=== PATIENT | male | born 1975 ===

== ENCOUNTER 2020-07-27 10:20 | Outpatient (REF) | payer OTHER, SELFPAY ==
[2020-07-27 11:24] LABS: MANUAL DIFF FLAG NO
[2020-07-27 11:32] LABS: Basophils Percent Auto 0.5 % (0-2); Eosinophils Absolute Auto 0.1 X10*3/uL (0.0-0.4); Eosinophils Percent Auto 1.7 % (0-4); Hematocrit 47.4 % (42-52); Hemoglobin 15.4 g/dl (14.0-18.0); Imm Gran Abs Auto 0.02 X10*3/uL (0.00-0.03); Imm Gran Pct Auto 0.5 % (0.0-0.4); Lymphocytes Absolute Auto 1.8 X10*3/uL (1.2-4.9); Lymphocytes Percent Auto 44.5 % (20-40); Mean Corpuscular HGB Conc 32.5 g/dl (31.0-36.0); Mean Corpuscular Hemoglobin 28.8 pg (27.0-33.0); Mean Corpuscular Volume 88.8 fL (80-98); Mean Platelet Volume 11.8 fL (9.4-12.4); Monocytes Absolute Auto 0.5 X10*3/uL (0.1-1.2); Monocytes Percent Auto 12.4 % (2-11); Neutrophils Absolute Auto 1.6 X10*3/uL (2.0-8.3); Neutrophils Percent Auto 40.4 % (45-73); Platelet Count 197 X10*3/uL (160-400); Red Blood Count 5.34 X10*6/uL (4.60-5.80); Red Cell Distribution Width 12.6 % (11.0-16.0)
[2020-07-27 11:54] LABS: Alanine Aminotransferase 37 U/L (0-40); Albumin Level 4.6 g/dL (3.5-5.0); Alkaline Phosphatase 89 U/L (39-117); Anion Gap 13 (12-20); Aspartate Amino Transferase 25 U/L (5-37); Blood Urea Nitrogen 16 mg/dL (9-16); Calcium 8.9 mg/dL (8.4-10.2); Carbon Dioxide 29 mmol/L (22-29); Chloride 105 mmol/L (96-108); Cholesterol 233 mg/dL; Estimated Glomerular Filt Rate > 60; Glucose Fasting 103 mg/dL (60-99); HDL Cholesterol 36 mg/dL; LDL Cholesterol Calculated 178 mg/dl; Sodium 143 mmol/L (135-145); Total Protein 7.2 g/dL (6.5-8.0); Triglycerides 99 mg/dL
== END 2020-07-27 10:21 | disposition home or self-care (01) ==
LOC: HO.HMGCLDS 10:20
PROVIDERS: PCP Internal Medicine; Visit Provider Internal Medicine
DX: R10.11 Right upper quadrant pain (principal); E66.3 Overweight; R00.2 Palpitations
CPT/HCPCS: 36415; 80053; 80061; 85025

== ENCOUNTER 2020-08-10 08:04 | Outpatient (REF) | payer OTHER, SELFPAY ==
--- NOTE | 2020-08-10 08:11 | US_ITS ---
EXAMINATION: US ABDOMEN COMPLETE CLINICAL INFORMATION: Right upper quadrant pain. Evaluate for gallstones.. COMPARISON: None TECHNIQUE: Real-time imaging of the abdominal viscera. FINDINGS: PANCREAS: Normal. ABDOMINAL AORTA: The proximal, mid, and distal segments are normal in caliber. INFERIOR VENA CAVA: Visualized portions are normal. LIVER: The liver is normal in size. The liver contour is normal. Liver echotexture is slightly increased. No focal hepatic lesion. There is no intrahepatic biliary duct dilatation seen. GALLBLADDER: Normal. The gallbladder is physiologically distended without evidence of stones, sludge, polyps, wall thickening or pericholecystic fluid. COMMON BILE DUCT: Normal in caliber measuring 0.3 cm in diameter. RIGHT KIDNEY: Normal. No hydronephrosis. No renal calculi or focal parenchymal lesions. The kidney measures 10.8 cm in maximum dimension. LEFT KIDNEY: Normal. No hydronephrosis. No renal calculi or focal parenchymal lesions. The kidney measures 11.6 cm in maximum dimension. SPLEEN: There is a 1.4 x 1.4 x 1.7 cm splenule inferior to the spleen The spleen measures 11 cm in maximum dimension. FREE FLUID: None. US/US abdomen complete IMPRESSION: Slightly echogenic liver. Otherwise unremarkable exam. No gallstone seen.
== END 2020-08-10 08:05 | disposition home or self-care (01) ==
LOC: HO.HMGCX 08:04
PROVIDERS: Visit Provider Internal Medicine
DX: R10.11 Right upper quadrant pain (principal)
CPT/HCPCS: 76700

== ENCOUNTER 2023-06-20 07:46 | Outpatient (AMB) | payer OTHER, SELFPAY ==
--- NOTE | 2023-06-20 08:04 | MHC.PC.OV ---
Vital Signs 06/20/23 08:09 Height 5 ft 7 in Weight 184 lb BMI 28.8 BP 118/74 Blood Pressure Location Rt brachial Position Sitting Pulse 72 Pulse Source Pulse Oximeter Pulse Oximetry (%) 99 Oxygen Delivery Method Room Air Intake Visit Reasons: Annual PE Intake Note: Pt is here today for his PE: Pt refused flu vaccine Allergies No Known Allergies [No Known Allergies*] Allergy (Verified 06/20/23 08:25) Medication List - Last Reconciled 06/20/23 by Kristine Navarrete MD aspirin (Adult Aspirin Regimen) 81 mg PO DAILY omeprazole 20 mg PO DAILY Tobacco use date assessed: 06/20/23 Dental Screening Dental Screen Date: 06/20/23 Did you have a dental visit in the last 12 months?: No Was dental information given to patient?: Patient has dentist HPI Annual PE HPI Details 48-year-old male with remote history of atrial fibrillation, history of left bundle branch block, here today for his physical exam. Complains of intermittent episodes of palpitation and muscle spasm over left anterior chest wall. Seen at the ER in [facility] February 2023 complaining of intermittent palpitations, EKG done there showed presence of left bundle branch block, old per ER note. It was also mentioned that he had history of atrial fibrillation in the past, no documentation in chart, never been anticoagulated. ACS ruled out at that time and patient was discharged on metoprolol which he stop taking, as it was making him feel strange, He has been experiencing intermittent episodes of heartburn symptoms, takes an omeprazole [id number] as needed. Complains of disturbed sleep, frequently wakes up at night to 3 times, has been told that he snores a lot and wakes up not feeling rested. Complains of excessive daytime sleepiness. He states that he has an appy in his phone that states that he has sleep apnea . [facility] Medical History (Updated 06/20/23 @ 09:08 by Kristine Navarrete MD) Vaccination refused by patient Heartburn symptom Left bundle branch block (LBBB) determined by electrocardiography History of atrial fibrillation Overweight Intermittent palpitations Family History Father No problems noted. Brother History of irregular heartbeat Sister History of irregular heartbeat Mother Mental health disorder Social History Housing: Apartment Alcohol intake: never Patient Tobacco Use Status: Never used Tobacco e-Cigarette/Vaping Use: Never Used Current occupational status: employed Cognitive needs: No Hearing needs: No Vision needs: No Questionnaire PHQ-9 Over the last 2 weeks, how often have you been bothered by any of the following problems? 1. Little interest or pleasure in doing things: several days 2. Feeling down, depressed, or hopeless: not at all 3. Trouble falling or staying asleep, or sleeping too much: not at all 4. Feeling tired or having little energy: not at all 5. Poor appetite or overeating: not at all 6. Feeling bad about yourself - or that you are a failure or have let yourself or your family down: several days 7. Trouble concentrating on things, such as reading the newspaper or watching television: several days 8. Moving or speaking so slowly that other people could have noticed. Or the opposite - being so fidgety or restless that you have been moving around a lot more than usual: not at all 9. Thoughts that you would be better off or of hurting yourself in some way: not at all Total score: 3 Depression Screening Interpretation: Negative Depression Screening Done: Yes 06682 - PHQ-9 Billing: Yes Source: Developed by Drs. Didier Prince, Val Wall, Richi Claire and colleagues, with an educational kevyn from [employer]. Thrive Questionnaire Date Thrive assessed: 06/20/23 I am a: Patient What is your living situation today?: I have a steady place to live Within the past 12 months, did the food you bought not last and you didn't have the money to get more?: Never true Within the past 12 months, did you worry whether your food would run out before you got money to buy more?: Never true Do you have trouble paying for medicines?: No Do you have trouble getting transportation to medical appointments?: No Do you have trouble paying your heating and electricity bill?: No Do you have trouble taking care of your child, family member or friend?: No Do you have trouble with day-to-day activities such as bathing, preparing meals, shopping, managing finances, etc.?: No Are you currently unemployed and looking for a job?: No Are you interested in more education?: No AUDIT C Alcohol Use Questionnaire (AUDIT-C) 1. How often do you have a drink containing alcohol?: Never Total Score: 0 EUGENIO-7 AMB Questionnaire EUGENIO-7 Date EUGENIO - 7 assessed: 06/20/23 Feeling nervous, anxious, or on edge: 0 = Not at all Not being able to stop or control worryin = Not at all Worrying too much about different things: 1 = Several days Trouble relaxin = Not at all Being so restless that it is hard to sit still: 0 = Not at all Becoming easily annoyed or irritable: 0 = Not at all Feeling afraid as if something awful might happen: 0 = Not at all Total EUGENIO-7 score (0-4 normal; 5-9 mild; 10-14 moderate; 15-21 severe): 1 Source: Developed by Drs. Didier Prince, Val Wall, Richi Claire and colleagues, with an educational kevyn from [employer]. EUGENIO-7 Assessment Billing EUGENIO-7 Assessment Tool: EUGENIO-7 Assessment 85959 Review of Systems Const Reports as per HPI, Denies fatigue, Denies fever(s), Denies headache(s), Denies poor appetite, Denies stops breathing during sleep and Denies weakness Eyes Details: Patient has not seen an eye doctor, will check with insurance to see who is under his network Reports blurry vision ENT Denies dysphagia, Denies dizziness, Denies headache(s), Denies nasal congestion, Denies nasal discharge and Denies sore throat Card Reports as per HPI, Denies chest pain, Denies chest pain with activity, Denies leg edema, Denies lightheadedness, Denies dyspnea and Denies dyspnea on exertion Resp Denies chest congestion, Denies cough, Denies dyspnea, Denies dyspnea on exertion and Denies wheezing GI Denies melena, Denies bloating, Denies change in bowel habits, Denies tenesmus, Denies change in stool character, Denies dysphagia, Denies excessive flatus, Denies heartburn, Denies nausea and Denies vomiting Denies dysuria, Denies urinary frequency and Denies urinary urgency Musc Denies arthralgias, Denies joint swelling, Denies limited range of motion, Denies muscle cramps, Denies muscle weakness and Denies stiffness Skin/Breast Denies lesions, Denies rash, Denies unusual bruising and Denies jaundice Neuro Denies dizziness, Denies headache(s) and Denies weakness Psych Reports no additional complaints Endo Denies fatigue, Denies polydipsia and Denies polyuria Donald/Lymph Denies easy bruising Aller/Immun Denies seasonal rhinorrhea and Denies wheezing Physical exam (Primary Care) Vital Signs: Last Vital Signs Pulse 72 06/20/23 08:09 BP 118/74 06/20/23 08:09 Pulse Ox 99 06/20/23 08:09 Oxygen Delivery Method Room Air 06/20/23 08:09 BMI result Body Mass Index 28.8 Tobacco/Smoking Status: Tobacco use Status Tobacco use date assessed 06/20/23 06/20/23 08:06 Patient Tobacco Use Status Never used Tobacco 06/20/23 08:13 e-Cigarette/Vaping Use Never Used 06/20/23 08:06 PHQ-9: PHQ-9 Score PHQ-9: Total score 3 06/20/23 08:58 Depression Screening Interpretation: Negative Thrive Assessment: Date of Thrive Assessment Date Thrive assessed 06/20/23 06/20/23 08:23 Const General: no acute distress and alert Nutritional Appearance: overweight Orientation/consciousness: patient oriented x3 Limitations: no limitations HENMT Head: Yes normocephalic and Yes atraumatic Ears: external ears normal, TM's normal bilaterally and EAC's normal General nose exam: Normal external nose present and No nasal discharge present Face and sinus: Yes face symmetric Mouth: Normal oral and palatal mucosa present, lip normal, tongue normal, oropharynx normal and moist mucous membranes Eyes General: appearance normal, both eyes and all related structures Eyelids: Yes eyelids normal Conjunctivae: conjunctivae normal Sclerae: sclerae normal Pupils: Equal, round and reactive pupils present EOM: EOMs intact bilaterally Neck Neck: Yes full ROM, Yes no lymphadenopathy and Yes supple Thyroid: Thyroid normal Chest Chest palpation & inspection: normal inspection of the chest Resp Effort & Inspection: normal respiratory effort and able to speak in complete sentences Auscultation: clear to auscultation bilaterally Cardio Rate: regular rate Rhythm: regular rhythm Heart sounds: S1 normal heart sound present and S2 normal heart sound present GI Palpation (GI): Soft to palpation, nontender, no guarding and no masses Auscultation: normal bowel sounds Male General Exam: Yes other (declined exam) Back/Spine/Pelvis Back: No back tenderness Skin General skin exam: no rashes or lesions noted Neuro General: patient oriented x3, gait normal, moves all extremities, Normal light touch and pain sensation, no focal motor deficits and CN's II-XI intact bilaterally Cranial nerves: Yes Equal, round and reactive pupils present Cognition (Neuro): normal cognition Gait exam (Neuro): Normal gait present Motor exam (neuro): 5/5 motor strength present throughout Extrem General: Yes normal to inspection, Yes full ROM, Yes no joint enlargement, Yes no pedal edema and Yes normal gait Psych Appearance: grossly normal and well kempt Mental Status: mental status grossly normal Speech and movement: Normal speech and movement present Affect: normal affect Attitude: cooperative Thought process: Normal thought process present Thought content: Normal thought content present Assessment and Plan Assessment & Plan (1) Annual visit for general adult medical examination with abnormal findings: Code(s): Z00.01 - Encounter for general adult medical examination with abnormal findings Plan: Will check appropriate labs. Recommended dental visit every 6 months and regular eye exams, at least every 2 years, patient will call insurance to see which eye doctor is in network.. Instructed to do self-testicular exam to check for any mass. Declines getting any vaccination. Does not want to get a screening colonoscopy but willing to do Cologuard. Patient advised to check with insurance if pain cold Cologuard covered and let me know so that test can be ordered (2) Left bundle branch block (LBBB) determined by electrocardiography: Code(s): I44.7 - Left bundle-branch block, unspecified Plan: EKG done today showed presence of left bundle branch block, old, seen on EKG done at the ER in [facility] when he was last seen February 2023. Patient complains of occasional palpitations and skipped beats. Referred to cardiology further evaluation (3) Disturbance, sleep: Code(s): G47.9 - Sleep disorder, unspecified Plan: Referred to [facility] sleep medicine for further evaluation management (4) Overweight: Code(s): E66.3 - Overweight (5) Intermittent palpitations: Code(s): R00.2 - Palpitations Plan: EKG done today showed presence of left bundle branch block, old, seen on EKG done at the ER in [facility] when he was last seen February 2023. Patient complains of occasional palpitations and skipped beats. Referred to cardiology further evaluation (6) Excessive daytime sleepiness: Code(s): G47.19 - Other hypersomnia Plan: Referral made to sleep medicine at [place] (7) Snoring: Code(s): R06.83 - Snoring Plan: Referred to sleep medicine at [place] (8) History of atrial fibrillation: Code(s): Z86.79 - Personal history of other diseases of the circulatory system Plan: EKG done today showed presence of left bundle branch block, old, seen on EKG done at the ER in [facility] when he was last seen February 2023. Patient complains of occasional palpitations and skipped beats. Referred to cardiology further evaluation (9) Vaccination refused by patient: Code(s): Z28.21 - Immunization not carried out because of patient refusal (10) Heartburn symptom: Code(s): R12 - Heartburn Plan: Takes omeprazole as needed Orders: Orders Complete Blood Count Auto Diff Today E66.3 - Overweight, R00.2 - Palpitations, Z00.01 - Encounter for general adult medical examination with abnormal findings Lipid Panel Today E66.3 - Overweight, R00.2 - Palpitations, Z00.01 - Encounter for general adult medical examination with abnormal findings AMB EKG-In Office Today R00.2 - Palpitations, Z86.79 - Personal history of other diseases of the circulatory system Basic Metabolic Panel Fasting Today E66.3 - Overweight, R00.2 - Palpitations, Z00.01 - Encounter for general adult medical examination with abnormal findings TSH reflex Free T4 Today E66.3 - Overweight, R00.2 - Palpitations, Z00.01 - Encounter for general adult medical examination with abnormal findings Referrals Sleep Medicine Referral G47.19 - Other hypersomnia, G47.9 - Sleep disorder, unspecified, R06.83 - Snoring Cardiology Referral I44.7 - Left bundle-branch block, unspecified, R00.2 - Palpitations, Z86.79 - Personal history of other diseases of the circulatory system Coding Level of Care Code Est Pt Prev Care 40-64y([id number]) Diagnoses Annual visit for general adult medical examination with abnormal findings Z00.01 Left bundle branch block (LBBB) determined by electrocardiography I44.7 Disturbance, sleep G47.9 Overweight E66.3 Intermittent palpitations R00.2 Excessive daytime sleepiness G47.19 Snoring R06.83 History of atrial fibrillation Z86.79 Vaccination refused by patient Z28.21 Heartburn symptom R12 Additional Codes EUGENIO-7 Assessment Billing - EUGENIO-7 Assessment Tool: EUGENIO-7 Assessment [id number] ([id number])
[2023-06-20 08:09] VITALS: BP 118/74; PULSE 72; O2SAT 99; BMI 28.8
== END 2023-06-20 09:08 | disposition home or self-care (01) ==
PROVIDERS: PCP Internal Medicine; Visit Provider Internal Medicine
DX: Z00.01 Encounter for general adult medical examination with abnormal findings (principal); I44.7 Left bundle-branch block, unspecified; G47.9 Sleep disorder, unspecified; E66.3 Overweight; R00.2 Palpitations; G47.19 Other hypersomnia; R06.83 Snoring; Z86.79 Personal history of other diseases of the circulatory system; Z28.21 Immunization not carried out because of patient refusal; R12 Heartburn
CPT/HCPCS: 99396

== ENCOUNTER 2023-06-20 08:53 | Outpatient (REF) | payer OTHER, SELFPAY ==
[2023-06-20 11:21] LABS: MANUAL DIFF FLAG NO
[2023-06-20 11:34] LABS: Basophils Percent Auto 0.7 % (0-2); Eosinophils Absolute Auto 0.1 X10*3/uL (0.0-0.4); Eosinophils Percent Auto 2.7 % (0-4); Hemoglobin 14.7 g/dl (14.0-18.0); Imm Gran Abs Auto 0.01 X10*3/uL (0.00-0.03); Imm Gran Pct Auto 0.2 % (0.0-0.4); Lymphocytes Absolute Auto 2.3 X10*3/uL (1.2-4.9); Lymphocytes Percent Auto 51.6 % (20-40); Mean Corpuscular Hemoglobin 28.8 pg (27.0-33.0); Mean Corpuscular Volume 90.2 fL (80.0-98.0); Monocytes Absolute Auto 0.5 X10*3/uL (0.1-1.2); Monocytes Percent Auto 11.1 % (2-11); Neutrophils Absolute Auto 1.5 x10*3/uL (2.0-8.3); Neutrophils Percent Auto 33.7 % (45-73); Platelet Count 180 X10*3/uL (160-400); Red Cell Distribution Width 12.6 % (11.0-16.0); White Blood Count 4.4 X10*3/uL (4.8-10.8)
[2023-06-20 11:52] LABS: Anion Gap 12 (12-20); Blood Urea Nitrogen 12 mg/dL (9-16); Calcium 9.1 mg/dL (8.4-10.2); Carbon Dioxide 28 mmol/L (22-29); Chloride 106 mmol/L (96-108); Cholesterol 204 mg/dL (<200); Estimated Glomerular Filt Rate > 60; Glucose Fasting 110 mg/dL (60-99); HDL Cholesterol 41 mg/dL (>40); LDL Cholesterol Calculated 148 mg/dL (<100); Potassium 3.9 mmol/L (3.3-5.1); Sodium 142 mmol/L (135-145); Triglycerides 75 mg/dL (<150)
[2023-06-20 12:13] LABS: TSH reflex Free T4 0.75 uIU/mL (0.32-4.0)
== END 2023-06-20 08:54 | disposition home or self-care (01) ==
LOC: HO.CHCLDS 08:53
PROVIDERS: Visit Provider Internal Medicine
DX: Z00.01 Encounter for general adult medical examination with abnormal findings (principal); E66.3 Overweight; R00.2 Palpitations
CPT/HCPCS: 36415; 80048; 80061; 84443; 85025

== ENCOUNTER 2023-08-30 07:33 | Outpatient (AMB) | payer OTHER, SELFPAY ==
--- NOTE | 2023-08-30 08:08 | A.OFFVIS_ITS ---
Intake Vital Signs 08/30/23 08:09 Height 5 ft 7 in Weight 180 lb 4 oz BMI 28.2 BP 122/68 Blood Pressure Location Rt brachial Position Sitting Respiration 16 Pulse 71 Pulse Source Pulse Oximeter Pulse Oximetry (%) 100 Oxygen Delivery Method Room Air Intake Visit Reasons: INP-Sleep disorder - Confirmed Intake Note: Pt presents to the office for new pt evaluation for sleep disturbance. Well Testing Operator Required: No Allergies No Known Allergies [No Known Allergies*] Allergy (Verified 08/30/23 08:09) HPI HPI Comments History of Present Illness Details 48 y/o male patient with HTN, LBBB prese nts for new in-person visit for sleep consultation. Pt reports snoring, witnessed apnea spells and frequent gasping arousals. He tried nasal strip and mouth guard, but it did not help to reduce snoring. He has non refreshing sleep and daytime sleepiness. Sleep questionnaire: Have you ever been diagnosed with a sleep disorder? No. Have you ever had a sleep study in the past? No. Have you ever been treated for a sleep disorder? No. Do you take medications for a sleep disorder? No. Do you snore? Yes. Do you wake up gasping at night? Yes. Do you have episodes of apneas? Yes. If yes, are they witnessed? Yes, by his brother. Do you have episodes of nocturnal chest pain or dyspnea? Yes. Do you have difficulty initiating sleep? No. Do you have difficulty maintaining sleep? Yes. Do you wake up tired? Yes. Do you have headaches upon awakening? Yes, sometimes. Do you wake up with dry mouth or throat? Yes, sometimes. Do you have GERD? Yes. Do you have nocturia? Yes, 3 times. Do you have nocturnal leg cramps? Once in a while. Do you have symptoms of restless legs? Yes, sometimes. Do you act out your dreams? No. Sleep hygiene questionnaire: What is your usual sleep routine? Usual bedtime is at 8 pm-11 pm; Usual wake up time is at 4-5:30 am. Do you take naps? No. Is your sleep environment cool, dark, and quiet? Yes. Do you exercise? No. Do you take caffeine or other stimulants? No. Do you use electronics in bed? Yes, sometimes. What is your work schedule? 9 am to 8 pm. Hypersomnolence questionnaire: Do you have daytime tiredness or fatigue? Yes. Do you easily fall asleep when inactive? Yes. Have you ever had episodes of sudden weakness? No. Have you ever had episodes of sudden weakness associated with strong emotions? No. [facility] Medical History (Updated 08/30/23 @ 08:30 by Suresh Andrade CNP) Vaccination refused by patient Heartburn symptom Left bundle branch block (LBBB) determined by electrocardiography History of atrial fibrillation Overweight Intermittent palpitations Family History Father No problems noted. Brother History of irregular heartbeat Sister History of irregular heartbeat Mother Mental health disorder Social History Housing: Apartment Alcohol intake: never Patient Tobacco Use Status: Never used Tobacco e-Cigarette/Vaping Use: Never Used Current occupational status: employed Cognitive needs: No Hearing needs: No Vision needs: No Review of Systems Const All systems reviewed & are unremarkable except as noted in HPI and below Physical Exam Vital Signs: Last Vital Signs Pulse 71 08/30/23 08:09 Resp 16 08/30/23 08:09 BP 122/68 08/30/23 08:09 Pulse Ox 100 08/30/23 08:09 Oxygen Delivery Method Room Air 08/30/23 08:09 BMI result Body Mass Index 28.2 Const General: cooperative Nutritional Appearance: overweight Orientation/consciousness: patient oriented x3 Neck Neck: Yes full ROM and Yes supple Resp Effort & Inspection: normal respiratory effort and able to speak in complete sentences Neuro General: patient oriented x3 and gait normal Cognition (Neuro): normal cognition Gait exam (Neuro): Normal gait present Motor exam (neuro): 5/5 motor strength present throughout, Pronator motor function not present and no tremor noted Psych Affect: normal affect Attitude: cooperative Assessment & Plan Assessment & Plan (1) Daytime sleepiness: Code(s): R40.0 - Somnolence (2) Snoring: Code(s): R06.83 - Snoring Plan Pt is advised to undergo home sleep study to assess for sleep apnea. Will f/u with pt after study to discuss results and appropriate treatment options. Sleep hygiene education provided. Pt to call with any worsening concerns or questions. Orders: Orders RT home sleep study Today E66.3 - Overweight, I44.7 - Left bundle-branch block, unspecified, R06.83 - Snoring, R40.0 - Somnolence Coding Level of Care Code New Pt Level 3 (11350) Diagnoses Daytime sleepiness R40.0 Snoring R06.83
[2023-08-30 08:09] VITALS: BP 122/68; PULSE 71; RESP 16; O2SAT 100; BMI 28.2
== END 2023-08-30 08:35 | disposition home or self-care (01) ==
PROVIDERS: PCP Internal Medicine; Visit Provider Nurse Practitioner Family
DX: R40.0 Somnolence (principal); R06.83 Snoring
CPT/HCPCS: 99203

== ENCOUNTER → 2023-08-30 07:33 | Outpatient (BNVA) | payer OTHER, SELFPAY | PROVIDERS: PCP Internal Medicine; Visit Provider Nurse Practitioner Family | DX: R40.0 Somnolence (principal); R06.83 Snoring | CPT/HCPCS: 99202 ==

== ENCOUNTER → 2023-09-11 14:12 | Outpatient (REF) | payer OTHER, SELFPAY | LOC: HO.SL 14:12 | PROVIDERS: PCP Internal Medicine; Visit Provider Nurse Practitioner Family | DX: I44.7 Left bundle-branch block, unspecified (principal); E66.3 Overweight; R06.83 Snoring; G47.33 Obstructive sleep apnea (adult) (pediatric) | CPT/HCPCS: 95806 ==

== ENCOUNTER → 2023-09-11 14:23 | Outpatient (BNV) | payer OTHER, SELFPAY | PROVIDERS: PCP Internal Medicine; Visit Provider Psychiatry & Neurology Neurology | DX: G47.33 Obstructive sleep apnea (adult) (pediatric) (principal) | CPT/HCPCS: 95806 ==

== ENCOUNTER 2023-09-24 14:57 | Outpatient (AMB) | payer OTHER, SELFPAY ==
[2023-09-24 15:04] VITALS: BP 120/72; PULSE 83; BMI 28.4
--- NOTE | 2023-09-24 15:04 | MHC.OFFVIS ---
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 We had seen him around 7 years ago in 2016. His episodes are very infrequent and there have not been any clinically significant episodes. He states that he occasionally takes metoprolol but has not taken that in about 6 months or so. Sometimes he feels as though his blood pressure is going up and at that time he preemptively takes metoprolol with some aspirin as he feels that otherwise he will go into atrial fibrillation. Some nonspecific twinge like sensation in the chest, and that led to ER visit at [facility] few months back. Otherwise, normal lifestyle without any major limitations. [facility] Medical History (Updated 09/24/23 @ 15:18 by Escobar Mei MD) PAF (paroxysmal atrial fibrillation) Vaccination refused by patient Heartburn symptom Left bundle branch block (LBBB) determined by electrocardiography History of atrial fibrillation Overweight Intermittent palpitations Family History (Updated 09/24/23 @ 15:08 by Trice Adkins) Father No problems noted. Brother History of irregular heartbeat Sister History of irregular heartbeat Mother Mental health disorder Hypertension A-fib Social History Housing: Apartment Alcohol intake: never Patient Tobacco Use Status: Never used Tobacco e-Cigarette/Vaping Use: Never Used Current occupational status: employed Cognitive needs: No Hearing needs: No Vision needs: No Review of Systems ENT Reports dizziness Card Denies chest pain, Denies chest pain at rest, Denies chest pain with activity, Denies rapid heart rate, Denies pedal edema, Denies edema, Denies leg edema, Denies lightheadedness, Denies palpitations, Denies dyspnea, Denies dyspnea on exertion and Denies orthopnea Resp Denies cough, Denies dyspnea and Denies dyspnea on exertion GI Denies hematochezia and Denies change in stool character Musc Denies abnormal gait, Reports limited range of motion, Reports muscle cramps, Denies muscle weakness, Denies numbness, Denies radiating pain into limb, Denies stiffness and Denies tingling Neuro Denies abnormal gait, Reports dizziness, Denies numbness and Denies tingling Endo Denies palpitations Physical Exam Vital Signs: Last Vital Signs Pulse 83 09/24/23 15:04 BP 120/72 09/24/23 15:04 BMI result Body Mass Index 28.4 Const General: comfortable and no acute distress Orientation/consciousness: patient oriented x3 HEENT Other: Unremarkable Head: Yes normal to inspection Neck Neck: Yes normal visual inspection Chest Chest palpation & inspection: normal inspection of the chest Resp Auscultation: clear to auscultation bilaterally Cardio Palpation: normal PMI Heart sounds: S1 normal heart sound present, S2 normal heart sound present, no gallops, no murmurs and no rubs GI Palpation (GI): Soft to palpation Back/Spine/Pelvis Other: unremarkable Skin General skin exam: no rashes or lesions noted Neuro General: patient oriented x3 Extrem General: Yes normal to inspection Psych Mental Status: mental status grossly normal Office Procedures EKG Details: EKG with sinus rhythm at 83/Min; left bundle-branch block type pattern. [id number], Complete Assessment & Plan Assessment & Plan (1) PAF (paroxysmal atrial fibrillation): Code(s): I48.0 - Paroxysmal atrial fibrillation Plan: Very rare episodes. He takes beta-blockers as needed and that is acceptable. We will check a Holter monitor. (2) Left bundle branch block (LBBB) determined by electrocardiography: Code(s): I44.7 - Left bundle-branch block, unspecified Plan: Today's EKG shows left bundle branch pattern. A prior EKG from last month also shows the same. Going back a few years there is slight widening of QRS but no clear-cut left bundle type morphology. Will check coronary CTA for any underlying CAD. Echocardiogram for any LV dysfunction. Plan Follow-up once these are completed. Plan discussed with patient and he understands and agrees. Orders: Orders CA echo transthoracic complete Today I44.7 - Left bundle-branch block, unspecified CT Cardiac Coronary Angio Today I25.10 - Atherosclerotic heart disease of [place] coronary artery without angina pectoris, I44.7 - Left bundle-branch block, unspecified ECG 14 day holter monitor Today I48.0 - Paroxysmal atrial fibrillation, R00.2 - Palpitations Basic Metabolic Panel Today I48.0 - Paroxysmal atrial fibrillation Coding Level of Care Code New Pt Level 4 (60097) Diagnoses PAF (paroxysmal atrial fibrillation) I48.0 Left bundle branch block (LBBB) determined by electrocardiography I44.7 CPT Codes EKG - CPT: 53002-[id number], Complete ([id number])
== END 2023-09-24 15:45 | disposition home or self-care (01) ==
PROVIDERS: PCP Internal Medicine; Visit Provider Internal Medicine
DX: I48.0 Paroxysmal atrial fibrillation (principal); I44.7 Left bundle-branch block, unspecified
CPT/HCPCS: 93010; 99204

== ENCOUNTER → 2023-09-24 14:57 | Outpatient (BNVA) | payer OTHER, SELFPAY | PROVIDERS: PCP Internal Medicine; Visit Provider Internal Medicine | DX: I48.0 Paroxysmal atrial fibrillation (principal); I44.7 Left bundle-branch block, unspecified | CPT/HCPCS: 93005; 99202 ==

== ENCOUNTER → 2023-10-15 12:54 | Outpatient (REF) | payer OTHER, SELFPAY ==
--- NOTE | 2023-10-15 12:57 | CA_ITS ---
Transthoracic Echocardiogram Patient (Last, First, Middle): Lopez Patel, Gender: Male Date of : 1975 Age: 48 Procedure Date: 10/15/2023 Procedure Type: Transthoracic Echocardiogram Location: OP Height: 170.18 cm Weight: 79.38 kg BSA: 1.91 m2 Heart Rate: bpm BP: 116 / 60 mmHg Towel Inspector: Referring MD: Escobar Mei MD Assisted Living Administrator: Brant Arriola MD Symptoms: I44.7 - Left bundle-branch block, unspecified Study Quality: Fair ECG Rhythm: Sinus Conclusions: - 1. Normal LV ejection fraction 65-70% 2. Trivial aortic regurgitation 3. Normal measured RV systolic pressure 4. No gross pericardial effusion Findings Left Ventricle Normal left ventricular size, thickness, and systolic function. The visually estimated ejection fraction is between 65-70%. There is paradoxical septal motion consistent with a left bundle branch block. Spectral Doppler is indicative of a normal filling pattern. Right Ventricle Normal right ventricular cavity size and systolic function. Aortic Valve Normal aortic valve structure and function. There is no aortic valve stenosis. There is trace (trivial) aortic valve regurgitation. Mitral Valve The mitral valve was not well visualized. There is trace mitral valve regurgitation. There is no mitral valve stenosis. Tricuspid Valve Likely normal tricuspid valve structure and function. There is trace tricuspid valve regurgitation. The right ventricular systolic pressure is normal. The right ventricular systolic pressure is 21 mmHg. Normal right atrial pressure. There is no evidence of pulmonary hypertension. Great Vessels The aorta was not well visualized. The pulmonary artery was not well visualized. Venous The inferior vena cava is normal in size. Pericardium/Pleural The pericardium was not well visualized. Prior Study Comparison No prior study available for comparison. delay in reporting due to technical issues Measurements 2D Linear Measurements IVSd: 0.96 0.6-0.9/0.6-1.0 cm LVIDd: 4.95 3.9-5.3/4.2-5.9 cm LVIDd Index: 2.59 2.4-3.2/2.2-3.1 cm/m2 LVIDs: 3.18 2.0-3.6 cm LVPWd: 1.00 0.7-1.1 cm Ao Root: 2.50 2.1-3.5 cm LA Diam: 3.60 2.7-3.8/3.0-4.0 cm LAIDs Index: 1.88 1.5-2.3 cm/m2 LV Mass: 217.00 67-162/88-224 g LV Mass Index: 113.61 43-95/49-115 g/m2 LVOT Diam: 2.00 3.0+(-)1.3 cm 2D Systolic Function EF 4C: 65.80 >55% EF 2C: 68.90 >55% EF BiP: 66.40 >55% Mitral Valve MV Pk E: 0.85 MV PK A: 0.84 MV Decel Time: 191.00 E/A: 1.00 E'Lateral: 8.81 E'Medial: 7.40 E/E' Med: 11.50 E/E' Lat: 9.70 PHT: 56.00 MVA PHT: 3.93 Decel Jewell: 4.46 Aortic Valve AoV Pk Andrew: 1.93 AoV Mn Andrew: 1.20 AoV VTI: 0.36 AoV Pk Grad: 15.00 Aov Mn Grad: 7.00 DREAD Cont.VTI: 2.27 LVOT LVOT Pk Andrew: 1.10 LVOT Mn Andrew: 0.78 LVOT VTI: 0.26 LVOT Pk Grad: 5.00 LVOT Mn Grad: 3.00 LVOT Diam: 2.00 LVOT Area: 3.14 Diastolic Function MV Pk E: 0.85 MV Pk A: 0.84 E/A: 1.00 E'Medial: 7.40 E/E' Med: 11.50 E' Laterial: 8.81 E/E' Lat: 9.70 Right Ventricle TAPSE (mm): 27.00 TVS' Andrew: 13.00 Tricuspid Valve TR Pk Andrew: 2.15 TR Pk Grad: 18.00 RA Press: 3.00 RVSP: 21.00 Great Vessels Aorta Ao Root-2D: 2.50 2.0-3.7 cm Pulmonary Valve PV Pk Andrew: 1.36 Peak PV Grad: 7.00 Updated in Other Vendor System with Status of Final Brant Arriola MD electronically signed on 10/18/2023 1:50:25 PM with status of Final
--- NOTE | 2023-10-15 12:57 | HM_ITS ---
* Total monitoring time 23 days. Analyzed time 15 days. * Underlying rhythm is sinus with an average rate of 69/Min. Range 45 to 123/Min. * Occasional supraventricular ectopy with low burden. * No clear evidence of atrial fibrillation. * Patient marker used in association with sinus rhythm. MTDD
== END ==
LOC: HO.CARD 12:54
PROVIDERS: PCP Internal Medicine; Visit Provider Internal Medicine
DX: I44.7 Left bundle-branch block, unspecified (principal); I48.0 Paroxysmal atrial fibrillation; R00.2 Palpitations
CPT/HCPCS: 93246; 93306

== ENCOUNTER → 2023-10-15 12:57 | Outpatient (BNV) | payer OTHER, SELFPAY | PROVIDERS: PCP Internal Medicine; Visit Provider Internal Medicine Cardiovascular Disease | DX: I47.10 Supraventricular tachycardia, unspecified (principal) | CPT/HCPCS: 93248; 93306 ==

== ENCOUNTER 2023-12-18 14:25 | Outpatient (REF) | payer OTHER, SELFPAY ==
[2023-12-18 16:35] LABS: Anion Gap 9 (12-20); Blood Urea Nitrogen 16 mg/dL (9-16); Calcium 9.1 mg/dL (8.4-10.2); Carbon Dioxide 27 mmol/L (22-29); Chloride 108 mmol/L (96-108); Estimated Glomerular Filt Rate > 60; Glucose Random 105 mg/dL (60-115); Sodium 140 mmol/L (135-145)
== END 2023-12-18 14:26 | disposition home or self-care (01) ==
LOC: HO.HMGCLDS 14:25
PROVIDERS: PCP Internal Medicine; Visit Provider Internal Medicine
DX: I48.0 Paroxysmal atrial fibrillation (principal)
CPT/HCPCS: 36415; 80048

== ENCOUNTER 2024-01-09 13:05 | Outpatient (AMB) | payer OTHER, SELFPAY ==
--- NOTE | 2024-01-09 13:14 | A.OFFVIS_ITS ---
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 Recently seen in consultation regarding left bundle-branch block as well as atrial fibrillation. We we had seen him around 2015 and then after few years, he returned for follow-up recently. For the most part, no palpitations. He is taken metoprolol occasionally but nothing recently. Otherwise, generally doing good. Recently completed an echocardi ogram, Holter as well as coronary CT. [facility] Medical History (Updated 01/09/24 @ 13:40 by Escobar Mei MD) Atherosclerotic cardiovascular disease PAF (paroxysmal atrial fibrillation) Vaccination refused by patient Heartburn symptom Left bundle branch block (LBBB) determined by electrocardiography History of atrial fibrillation Overweight Intermittent palpitations Family History (Updated 09/24/23 @ 15:08 by Trice Adkins CMA) Father No problems noted. Brother History of irregular heartbeat Sister History of irregular heartbeat Mother Mental health disorder Hypertension A-fib Social History Housing: Apartment Alcohol intake: never Patient Tobacco Use Status: Never used Tobacco e-Cigarette/Vaping Use: Never Used Current occupational status: employed Cognitive needs: No Hearing needs: No Vision needs: No Review of Systems Const Denies chills, Denies fatigue, Denies fever(s), Denies frequent falls, Denies weakness, Denies weight gain and Denies weight loss ENT Denies dizziness Card Denies chest pain, Denies leg edema, Denies lightheadedness, Denies palpitations, Denies dyspnea, Denies dyspnea on exertion, Denies orthopnea and Denies other (loss of consciousness) Resp Denies cough, Denies dyspnea and Denies dyspnea on exertion GI Denies hematochezia and Denies change in stool character Musc Denies abnormal gait, Denies muscle weakness, Denies numbness, Denies radiating pain into limb and Denies tingling Neuro Denies abnormal gait, Denies dizziness, Denies frequent falls, Denies numbness, Denies tingling and Denies weakness Endo Denies fatigue and Denies palpitations Physical Exam Vital Signs: Last Vital Signs Pulse 62 01/09/24 13:15 BP 122/74 01/09/24 13:15 BMI result Body Mass Index 29.3 Const General: comfortable and no acute distress Orientation/consciousness: patient oriented x3 HEENT Other: Unremarkable Head: Yes normal to inspection Neck Neck: Yes normal visual inspection Chest Chest palpation & inspection: normal inspection of the chest Resp Auscultation: clear to auscultation bilaterally Cardio Palpation: normal PMI Heart sounds: S1 normal heart sound present, S2 normal heart sound present, no gallops, no murmurs and no rubs GI Palpation (GI): Soft to palpation Back/Spine/Pelvis Other: unremarkable Skin General skin exam: no rashes or lesions noted Neuro General: patient oriented x3 Extrem General: Yes normal to inspection Psych Mental Status: mental status grossly normal Assessment & Plan Assessment & Plan (1) PAF (paroxysmal atrial fibrillation): Code(s): I48.0 - Paroxysmal atrial fibrillation Category: Medical Plan: Very rare episodes. He takes beta-blockers as needed and that is acceptable. Recent Holter for almost 23 days unremarkable. (2) Left bundle branch block (LBBB) determined by electrocardiography: Code(s): I44.7 - Left bundle-branch block, unspecified Category: Medical Plan: Recent EKG shows left bundle branch pattern. A prior EKG from last month also shows the same. Going back a few years there is slight widening of QRS but no clear-cut left bundle type morphology. Echocardiogram with preserved LVEF. (3) Atherosclerotic cardiovascular disease: Code(s): I25.10 - Atherosclerotic heart disease of [place] coronary artery without angina pectoris Category: Medical Plan: Mild plaque in the proximal LAD but otherwise unremarkable. Recommend statins. Follow-up lipids in few months. Plan Follow-up once these are completed. Plan discussed with patient and he understands and agrees. Orders: Orders Liver Panel Today I25.10 - Atherosclerotic heart disease of [place] coronary artery without angina pectoris Lipid Panel Today E78.5 - Hyperlipidemia, unspecified Medications: New atorvastatin 40 mg PO QPM 90 tabs 3RF Coding Level of Care Code Est Pt Level 4 (81071) Diagnoses PAF (paroxysmal atrial fibrillation) I48.0 Left bundle branch block (LBBB) determined by electrocardiography I44.7 Atherosclerotic cardiovascular disease I25.10
[2024-01-09 13:15] VITALS: BP 122/74; PULSE 62; BMI 29.3
== END 2024-01-09 13:41 | disposition home or self-care (01) ==
PROVIDERS: PCP Internal Medicine; Visit Provider Internal Medicine
DX: I48.0 Paroxysmal atrial fibrillation (principal); I44.7 Left bundle-branch block, unspecified; I25.10 Atherosclerotic heart disease of native coronary artery without angina pectoris
CPT/HCPCS: 99214

== ENCOUNTER → 2024-01-09 13:05 | Outpatient (BNVA) | payer OTHER, SELFPAY | PROVIDERS: PCP Internal Medicine; Visit Provider Internal Medicine | DX: I48.0 Paroxysmal atrial fibrillation (principal); I44.7 Left bundle-branch block, unspecified; I25.10 Atherosclerotic heart disease of native coronary artery without angina pectoris | CPT/HCPCS: 99212 ==

== ENCOUNTER 2024-01-15 13:31 | Outpatient (AMB) | payer OTHER, SELFPAY ==
--- NOTE | 2024-01-15 13:32 | MHC.OFFVIS ---
Vital Signs 01/15/24 13:34 Height 5 ft 7 in Weight 187 lb BMI 29.3 BP 126/70 Blood Pressure Location Rt brachial Position Sitting Pulse 66 Pulse Source Pulse Oximeter Pulse Oximetry (%) 98 Oxygen Delivery Method Room Air Intake Visit Reasons: 4 mnts f/u Sleep - LVM w/address Intake Note: Patient presents for 4 months. Allergies No Known Allergies [No Known Allergies*] Allergy (Verified 01/15/24 13:34) HPI Comments Details: 48 y/o male patient presents for follow up of sleep study. The home sleep study result was significant for a mild degree of sleep apnea. The AHI was 6/hr and oxygen amalia was 82%. Pt started APAP at [id number]. The CPAP compliance and therapy response (10/17/23-01/14/24) reviewed. He is on APAP [id number]. The usage days 100% and the average usage hours 6 hrs. The max pressure was 11.2 and the residual AHI was 1.4/hr. He sleeps ok overall, but feels his nasal clog and can't breathe well when he uses CPAP. He had hx of nasal polyps. He requested full face mask and it takes too long to have the new mask, he plans to buy from online. He uses Calm supplement in the morning, too. [facility] Medical History (Updated 01/15/24 @ 21:39 by Suresh Andrade CNP) Atherosclerotic cardiovascular disease PAF (paroxysmal atrial fibrillation) Vaccination refused by patient Heartburn symptom Left bundle branch block (LBBB) determined by electrocardiography History of atrial fibrillation Overweight Intermittent palpitations Family History Father No problems noted. Brother History of irregular heartbeat Sister History of irregular heartbeat Mother Mental health disorder Hypertension A-fib Social History Housing: Apartment Alcohol intake: never Patient Tobacco Use Status: Never used Tobacco e-Cigarette/Vaping Use: Never Used Current occupational status: employed Cognitive needs: No Hearing needs: No Vision needs: No Review of Systems Const All systems reviewed & are unremarkable except as noted in HPI and below Physical Exam Vital Signs: Last Vital Signs Pulse 66 01/15/24 13:34 BP 126/70 01/15/24 13:34 Pulse Ox 98 01/15/24 13:34 Oxygen Delivery Method Room Air 01/15/24 13:34 BMI result Body Mass Index 29.3 Const General: cooperative Nutritional Appearance: overweight Orientation/consciousness: patient oriented x3 Neck Neck: Yes full ROM and Yes supple Resp Effort & Inspection: normal respiratory effort and able to speak in complete sentences Neuro General: patient oriented x3 and gait normal Cognition (Neuro): normal cognition Gait exam (Neuro): Normal gait present Motor exam (neuro): 5/5 motor strength present throughout, Pronator motor function not present and no tremor noted Psych Affect: normal affect Attitude: cooperative Assessment & Plan Assessment & Plan (1) JUNIOR (obstructive sleep apnea): Comment: Mild degree of sleep apnea. The AHI was 6/hr and oxygen amalia was 82%. Code(s): G47.33 - Obstructive sleep apnea (adult) (pediatric) Category: Medical Plan Pt does not want to refer to ENT at this time. He will consider to have evaluation of ENT at the next visit. He will try full face mask. Advised patient to continue to use CPAP at [id number]. Stressed compliance, use CPAP nightly and more than 4 hrs. Advised patient to try Calm supplement qHS for sleep. Coding Level of Care Code Est Pt Level 3 (91928) Diagnoses JUNIOR (obstructive sleep apnea) G47.33
[2024-01-15 13:34] VITALS: BP 126/70; PULSE 66; O2SAT 98; BMI 29.3
== END 2024-01-15 13:48 | disposition home or self-care (01) ==
PROVIDERS: PCP Internal Medicine; Visit Provider Nurse Practitioner Family
DX: G47.33 Obstructive sleep apnea (adult) (pediatric) (principal)
CPT/HCPCS: 99213

== ENCOUNTER → 2024-01-15 13:31 | Outpatient (BNVA) | payer OTHER, SELFPAY | PROVIDERS: PCP Internal Medicine; Visit Provider Nurse Practitioner Family | DX: G47.33 Obstructive sleep apnea (adult) (pediatric) (principal) | CPT/HCPCS: 99212 ==

== ENCOUNTER 2024-07-07 11:02 | Outpatient (REF) | payer SELFPAY ==
[2024-07-07 13:48] LABS: Alanine Aminotransferase 52 U/L (0-40); Albumin Level 4.3 g/dL (3.5-5.0); Alkaline Phosphatase 106 U/L (39-117); Aspartate Amino Transferase 37 U/L (5-37); Bilirubin Direct 0.2 mg/dL (0.0-0.5); Bilirubin Total 0.5 mg/dL (0.0-1.0); Cholesterol 238 mg/dL (<200); HDL Cholesterol 37 mg/dL (>40); LDL Cholesterol Calculated 186 mg/dL (<100); Total Protein 6.9 g/dL (6.5-8.0); Triglycerides 76 mg/dL (<150)
== END 2024-07-07 11:03 | disposition home or self-care (01) ==
LOC: HO.HMGCLDS 11:02
PROVIDERS: PCP Internal Medicine; Visit Provider Internal Medicine
DX: I25.10 Atherosclerotic heart disease of native coronary artery without angina pectoris (principal); E78.5 Hyperlipidemia, unspecified
CPT/HCPCS: 36415; 80061; 80076

== ENCOUNTER 2024-07-09 13:19 | Outpatient (AMB) | payer OTHER, SELFPAY ==
[2024-07-09 13:23] VITALS: BP 122/60; PULSE 72
--- NOTE | 2024-07-09 13:23 | MHC.OFFVIS ---
Vital Signs 07/09/24 13:23 Height 5 ft 7 in Weight 191 lb 12.835 oz BMI 30.0 BP 122/60 Blood Pressure Location Lt brachial Position Sitting Pulse 72 Pulse Source Pulse Oximeter Intake Visit Reasons: 6 mth f/up Allergies No Known Allergies [No Known Allergies*] Allergy (Verified 01/15/24 13:34) Medication List - Last Reconciled 07/09/24 by Escobar Mei MD aspirin (Adult Aspirin Regimen) 81 mg PO DAILY PRN atorvastatin 20 mg PO QPM bergamot- gooseberry xt 400-250 mg tabs PO cholecalciferol (vitamin D3) 125 mcg PO DAILY cholecalciferol (vitamin D3) 100 mcg PO DAILY coenzyme Q10 (Co Q-10) 200 mg PO DAILY cyanocobalamin (vitamin B-12) 1,000 mcg PO DAILY garlic 250 mg PO DAILY metoprolol tartrate 25 mg PO DAILY PRN [id number]-fish oil-vit D3 [id number] yc-xg-hc-unit caps PO vitamin K2 100 mcg PO DAILY HPI Comments Details: Lopez returns for follow-up. Originally seen in 2016 and then more recently returns for follow-up. He has a history of paroxysmal atrial fibrillation but no recent issues. He also had a recent EKG that showed left bundle-branch block. Then completed an echocardiogram, Holter and coronary CTA. Mild CAD. Markedly high lipids. He is only taking supplements but not statins. No clear-cut cardiac symptoms. [facility] Medical History (Updated 01/15/24 @ 21:39 by Suresh Andrade CNP) Atherosclerotic cardiovascular disease PAF (paroxysmal atrial fibrillation) Vaccination refused by patient Heartburn symptom Left bundle branch block (LBBB) determined by electrocardiography History of atrial fibrillation Overweight Intermittent palpitations Family History Father No problems noted. Brother History of irregular heartbeat Sister History of irregular heartbeat Mother Mental health disorder Hypertension A-fib Social History Housing: Apartment Alcohol intake: never Patient Tobacco Use Status: Never used Tobacco e-Cigarette/Vaping Use: Never Used Current occupational status: employed Cognitive needs: No Hearing needs: No Vision needs: No Review of Systems Const Denies weakness ENT Denies dizziness Card Denies chest pain, Denies chest pain with activity, Denies syncope, Denies rapid heart rate, Denies pedal edema, Denies edema, Denies leg edema, Denies lightheadedness, Denies palpitations, Denies dyspnea, Denies dyspnea on exertion and Denies orthopnea Resp Denies cough, Denies dyspnea and Denies dyspnea on exertion GI Denies hematochezia and Denies change in stool character Musc Denies abnormal gait, Denies muscle cramps, Denies muscle weakness, Denies numbness, Denies radiating pain into limb and Denies tingling Neuro Denies abnormal gait, Denies dizziness, Denies syncope, Denies numbness, Denies tingling and Denies weakness Endo Denies palpitations Physical Exam Vital Signs: Last Vital Signs Pulse 72 07/09/24 13:23 BP 122/60 07/09/24 13:23 BMI result Body Mass Index 30.0 Const General: comfortable and no acute distress Orientation/consciousness: patient oriented x3 HEENT Other: Unremarkable Head: Yes normal to inspection Neck Neck: Yes normal visual inspection Chest Chest palpation & inspection: normal inspection of the chest Resp Auscultation: clear to auscultation bilaterally Cardio Palpation: normal PMI Heart sounds: S1 normal heart sound present, S2 normal heart sound present, no gallops, no murmurs and no rubs GI Palpation (GI): Soft to palpation Back/Spine/Pelvis Other: unremarkable Skin General skin exam: no rashes or lesions noted Neuro General: patient oriented x3 Extrem General: Yes normal to inspection Psych Mental Status: mental status grossly normal Assessment & Plan Assessment & Plan (1) PAF (paroxysmal atrial fibrillation): Code(s): I48.0 - Paroxysmal atrial fibrillation Category: Medical Plan: No recent issues. He states he takes metoprolol only as necessary. Okay to stay that way. Recent Holter for almost 23 days unremarkable. (2) Left bundle branch block (LBBB) determined by electrocardiography: Code(s): I44.7 - Left bundle-branch block, unspecified Category: Medical Plan: Recent EKG shows left bundle branch pattern. Going back a few years there is slight widening of QRS but no clear-cut left bundle type morphology. Echocardiogram with preserved LVEF. (3) Atherosclerotic cardiovascular disease: Code(s): I25.10 - Atherosclerotic heart disease of [place] coronary artery without angina pectoris Category: Medical Plan: Mild plaque in the proximal LAD but otherwise unremarkable. Try to atorvastatin but he states it made him dizzy and hence he stopped it. He is only doing supplements. However, lipids are quite high and hence advised him to try it again and probably use it lower dose. He is willing to try. Check lipids and LFTs in 3 months. Orders: Orders Liver Panel 3 Months I25.10 - Atherosclerotic heart disease of [place] coronary artery without angina pectoris Lipid Panel 3 Months E78.5 - Hyperlipidemia, unspecified, I25.10 - Atherosclerotic heart disease of [place] coronary artery without angina pectoris Medications: New atorvastatin 20 mg PO QPM 90 tabs 1RF Coding Level of Care Code Est Pt Level 3 (09629) Diagnoses PAF (paroxysmal atrial fibrillation) I48.0 Left bundle branch block (LBBB) determined by electrocardiography I44.7 Atherosclerotic cardiovascular disease I25.10
== END 2024-07-09 13:48 | disposition home or self-care (01) ==
PROVIDERS: PCP Internal Medicine; Visit Provider Internal Medicine
DX: I48.0 Paroxysmal atrial fibrillation (principal); I44.7 Left bundle-branch block, unspecified; I25.10 Atherosclerotic heart disease of native coronary artery without angina pectoris
CPT/HCPCS: 99213

== ENCOUNTER → 2024-07-09 13:19 | Outpatient (BNVA) | payer OTHER, SELFPAY | PROVIDERS: PCP Internal Medicine; Visit Provider Internal Medicine | DX: I48.0 Paroxysmal atrial fibrillation (principal); I44.7 Left bundle-branch block, unspecified; I25.10 Atherosclerotic heart disease of native coronary artery without angina pectoris | CPT/HCPCS: 99212 ==

== ENCOUNTER 2024-07-28 12:59 | Outpatient (AMB) | payer OTHER, SELFPAY ==
--- NOTE | 2024-07-28 13:27 | MHC.PC.OV ---
Vital Signs 07/28/24 13:28 Height 5 ft 7 in Weight 192 lb BMI 30.1 BP 110/62 Blood Pressure Location Rt brachial Position Sitting Pulse 69 Pulse Source Pulse Oximeter Pulse Oximetry (%) 99 Oxygen Delivery Method Room Air Intake Visit Reasons: PE Intake Note: Pt is here today for his PE Allergies No Known Allergies [No Known Allergies*] Allergy (Verified 07/28/24 13:52) Medication List - Last Reconciled 07/28/24 by Kristine Navarrete MD aspirin (Adult Aspirin Regimen) 81 mg PO DAILY PRN atorvastatin 20 mg PO QPM bergamot- gooseberry xt 400-250 mg tabs PO cholecalciferol (vitamin D3) 100 mcg PO DAILY coenzyme Q10 (Co Q-10) 200 mg PO DAILY cyanocobalamin (vitamin B-12) 1,000 mcg PO DAILY garlic 250 mg PO DAILY metoprolol tartrate 25 mg PO DAILY PRN kp-6-pzo-epa-fish oil-vit D3 [phone] um-ge-bu-unit caps PO vitamin K2 100 mcg PO DAILY Tobacco use date assessed: 07/28/24 Dental Screening Dental Screen Date: 07/28/24 Did you have a dental visit in the last 12 months?: Yes Did you have a dental problem in the last 6 months where you did not have access to dental care?: Yes Was dental information given to patient?: Patient has dentist HPI PE HPI Details 49 -year-old male with remote history of atrial fibrillation, history of left bundle branch block, atherosclerotic heart disease, dyslipidemia, mild obstructive sleep apnea currently on CPAP, hypertension, here today for his physical exam. He had marked elevation in his lipids as noted by Cardiology and was started on atorvastatin 20 mg daily, to repeat another fasting lipid panel liver enzymes in 3 months. He has been complaining of intermittent episodes of epigastric discomfort radiating up to middle of his chest, usually aggravated by food intake. This has been present now for the last several months. He has never had colon cancer screening, and does not want to get referred for screening colonoscopy or do Cologuard testing at present time. Complaining of pain and swelling in left lower gum area where he has an infected tooth. Patient has seen his dentist but unable to get procedure done due to severe anxiety, planning a trip to [place] to sees his dentist and get it treated therein September 2024. [facility] Medical History (Updated 07/29/24 @ 01:31 by Kristine Navarrete MD) Atherosclerotic cardiovascular disease PAF (paroxysmal atrial fibrillation) Vaccination refused by patient Heartburn symptom Left bundle branch block (LBBB) determined by electrocardiography History of atrial fibrillation Overweight Intermittent palpitations Family History Father No problems noted. Brother History of irregular heartbeat Sister History of irregular heartbeat Mother Mental health disorder Hypertension A-fib Social History Housing: Apartment Alcohol intake: never Patient Tobacco Use Status: Never used Tobacco e-Cigarette/Vaping Use: Never Used Current occupational status: employed Cognitive needs: No Hearing needs: No Vision needs: No Questionnaire PHQ-9 Over the last 2 weeks, how often have you been bothered by any of the following problems? 1. Little interest or pleasure in doing things: not at all 2. Feeling down, depressed, or hopeless: not at all 3. Trouble falling or staying asleep, or sleeping too much: not at all 4. Feeling tired or having little energy: several days 5. Poor appetite or overeating: not at all 6. Feeling bad about yourself - or that you are a failure or have let yourself or your family down: not at all 7. Trouble concentrating on things, such as reading the newspaper or watching television: several days 8. Moving or speaking so slowly that other people could have noticed. Or the opposite - being so fidgety or restless that you have been moving around a lot more than usual: not at all 9. Thoughts that you would be better off or of hurting yourself in some way: not at all Total score: 2 Depression Screening Interpretation: Negative Depression Screening Done: Yes 60451 - PHQ-9 Billing: Yes Source: Developed by Drs. Didier Prince, Val Wall, Richi Claire and colleagues, with an educational kevyn from [employer]. Thrive Questionnaire Date Thrive assessed: 07/28/24 I am a: Patient What is your living situation today?: I have a steady place to live Within the past 12 months, did the food you bought not last and you didn't have the money to get more?: Never true Within the past 12 months, did you worry whether your food would run out before you got money to buy more?: Never true Do you have trouble paying for medicines?: No Do you have trouble getting transportation to medical appointments?: No Do you have trouble paying your heating and electricity bill?: No Do you have trouble taking care of your child, family member or friend?: No Do you have trouble with day-to-day activities such as bathing, preparing meals, shopping, managing finances, etc.?: No Are you currently unemployed and looking for a job?: No Are you interested in more education?: No Please select the resources that you would like help with: None Currently or been in a relationship where the following occur: No concerns reported THRIVE Score: 0 AUDIT C Alcohol Use Questionnaire (AUDIT-C) 1. How often do you have a drink containing alcohol?: Never Total Score: 0 EUGENIO-7 AMB Questionnaire EUGENIO-7 Date EUGENIO - 7 assessed: 07/28/24 Feeling nervous, anxious, or on edge: 0 = Not at all Not being able to stop or control worryin = Not at all Worrying too much about different things: 0 = Not at all Trouble relaxin = Not at all Being so restless that it is hard to sit still: 0 = Not at all Becoming easily annoyed or irritable: 0 = Not at all Feeling afraid as if something awful might happen: 0 = Not at all Total EUGENIO-7 score (0-4 normal; 5-9 mild; 10-14 moderate; 15-21 severe): 0 Source: Developed by Drs. Didier Prince, Val Wall, Richi Claire and colleagues, with an educational kevyn from [employer]. EUGENIO-7 Assessment Billing EUGENIO-7 Assessment Tool: EUGENIO-7 Assessment 47662 Review of Systems Const Reports no additional complaints Eyes Reports no additional complaints ENT Reports no additional complaints Card Denies chest pain, Denies chest pain with activity, Denies syncope, Denies edema, Denies lightheadedness, Denies palpitations, Denies dyspnea, Denies dyspnea on exertion and Denies orthopnea Resp Denies cough, Denies dyspnea and Denies dyspnea on exertion GI Reports as per HPI, Denies melena, Denies hematochezia and Denies change in stool character Reports no additional complaints Musc Denies abnormal gait, Denies muscle cramps, Denies muscle weakness, Denies numbness and Denies tingling Skin/Breast Denies lesions and Denies rash Neuro Denies abnormal gait, Denies syncope, Denies numbness and Denies tingling Psych Reports no additional complaints Endo Denies palpitations Donald/Lymph Reports no additional complaints Aller/Immun Reports no additional complaints Physical exam (Primary Care) Vital Signs: Last Vital Signs Pulse 69 07/28/24 13:28 BP 110/62 07/28/24 13:28 Pulse Ox 99 07/28/24 13:28 Oxygen Delivery Method Room Air 07/28/24 13:28 BMI result Body Mass Index 30.1 Tobacco/Smoking Status: Tobacco use Status Tobacco use date assessed 07/28/24 07/28/24 13:29 Patient Tobacco Use Status Never used Tobacco 07/28/24 13:29 e-Cigarette/Vaping Use Never Used 07/28/24 13:29 PHQ-9: PHQ-9 Score PHQ-9: Total score 2 07/28/24 13:54 Depression Screening Interpretation: Negative Thrive Assessment: Date of Thrive Assessment Date Thrive assessed 07/28/24 07/28/24 13:29 Currently or been in a relationship where the following occur: No concerns reported Const General: no acute distress and alert Nutritional Appearance: overweight Orientation/consciousness: patient oriented x3 HENMT Head: Yes normocephalic Ears: external ears normal, TM's normal bilaterally and EAC's normal General nose exam: Normal external nose present Face and sinus: Yes face symmetric Mouth: Normal oral and palatal mucosa present, tongue normal, oropharynx normal and moist mucous membranes Eyes General: appearance normal, both eyes and all related structures Neck Neck: Yes full ROM, Yes no lymphadenopathy and Yes supple Thyroid: Thyroid normal Chest Chest palpation & inspection: normal inspection of the chest Resp Effort & Inspection: normal respiratory effort and able to speak in complete sentences Auscultation: clear to auscultation bilaterally Cardio Rate: regular rate Rhythm: regular rhythm Heart sounds: S1 normal heart sound present and S2 normal heart sound present GI Palpation (GI): Soft to palpation, Tenderness to palpation present (GI) (Slightly tender to palpation over epigastric area), no guarding and no masses Auscultation: normal bowel sounds Male General Exam: Yes other (declined exam) Back/Spine/Pelvis Back: No back tenderness Skin General skin exam: no rashes or lesions noted Neuro General: patient oriented x3, gait normal, moves all extremities, Normal light touch and pain sensation, no focal motor deficits and CN's II-XI intact bilaterally Cognition (Neuro): normal cognition Gait exam (Neuro): Normal gait present Motor exam (neuro): 5/5 motor strength present throughout Extrem General: Yes normal to inspection, Yes full ROM, Yes no joint enlargement, Yes no pedal edema and Yes normal gait Psych Appearance: grossly normal and well kempt Mental Status: mental status grossly normal Speech and movement: Normal speech and movement present Affect: normal affect Attitude: cooperative Thought process: Normal thought process present Thought content: Normal thought content present Results Reviewed Results Reviewed: Name: Lopez Patel Age/Sex: 48/M : 1975 Unit#: [id number] Attend Dr: Kristine Navarrete MD Re06/20/23 Status: DEP REF Location: [facility] Disch: SPEC : [id number] SAMUEL: 06/20/23 STATUS: COMP REQ : [id number] RECD: 06/20/[address]: Kristine Navarrete MD COMP: 06/20/23 ENTERED: 06/20/[address] [facility]: ORDERED: CBC Auto Diff Test Result Flag Reference WBC 4.4 L 4.8-10.8 X10*3/uL RBC 5.10 4.60-5.80 X10*6/uL HGB 14.7 14.0-18.0 g/dl HCT 46.0 42.0-52.0 % MCV 90.2 80.0-98.0 fL MCH 28.8 27.0-33.0 pg MCHC 32.0 31.0-36.0 g/dl RDW 12.6 11.0-16.0 % PLT 180 160-400 X10*3/uL MPV 12.0 9.4-12.4 fL Neut Pct Auto 33.7 L 45-73 % ImGran Pct Auto 0.2 0.0-0.4 % Lymp Pct Auto 51.6 H 20-40 % [place] Pct Auto 11.1 H 2-11 % Eos Pct Auto 2.7 0-4 % Baso Pct Auto 0.7 0-2 % NRBC Pct Auto 0.0 0.0-0.2 /100WBC ANC Neut Abs # 1.5 L 2.0-8.3 x10*3/uL ImGran Abs Auto 0.01 0.00-0.03 X10*3/uL Lymph Abs Auto 2.3 1.2-4.9 X10*3/uL [place] Abs Auto 0.5 0.1-1.2 X10*3/uL Eos Abs Auto 0.1 0.0-0.4 X10*3/uL Baso Abs Auto 0.0 0.0-0.2 X10*3/uL Name: Lopez Patel Age/Sex: 49/M : 1975 Unit#: [id number] Attend Dr: Escobar Mei MD Re07/07/24 Status: DEP [facility]F [facility] Disch: SPEC : [id number] SAMUEL: 07/07/24 STATUS: COMP REQ : [id number] RECD: 07/07/[address]: Escobar Mei MD COMP: 07/07/24 ENTERED: 07/07/[address]: Kristine Navarrete MD ORDERED: Liver Panel, Lipid Panel Test Result Flag Reference Total Bili 0.5 0.0-1.0 mg/dL Direct Bili 0.2 0.0-0.5 mg/dL AST (GOT) 37 5-37 U/L ALT (GPT) 52 H 0-40 U/L Protein, Total 6.9 6.5-8.0 g/dL Alb 4.3 3.5-5.0 g/dL Triglyceride 76 <150 mg/dL Desirable Triglyceride: less than 150 mg/dL Borderline High Triglyceride 150-199 mg/dL High Triglyceride: 200-499 mg/dL Very High Triglyceride: greater than or equal to 5OO mg/dL Cholesterol 238 H <200 mg/dL Desirable Cholesterol: less than 200 mg/dL Borderline High Cholesterol: 200-239 mg/dL High Cholesterol: greater than 239 mg/dL LDL Calculated 186 H <100 mg/dL Desirable LDL: less than 100 mg/dL Near Optimal/Above Optimal LDL: 110-129 mg/dL Borderline High LDL: 130-159 mg/dL High LDL: 160-189 mg/dL Very High LDL: greater than or equal to 190 mg/dL HDL 37 L >40 mg/dL Desirable HDL: greater than 40 mg/dL Note: This HDL assay may give artificially low results in patients with liver disease. Alk Phos 106 39-117 U/L Coding Level of Care Code Est Pt Prev Care 40-64y(93593) Diagnoses Annual visit for general adult medical examination with abnormal findings Z00. Periodontal disease K05.6 JUNIOR (obstructive sleep apnea) G47.33 Atherosclerotic cardiovascular disease I25.10 PAF (paroxysmal atrial fibrillation) I48.0 Vaccination refused by patient Z28.21 Heartburn symptom R12 Overweight E66.3 Additional Codes EUGENIO-7 Assessment Billing - EUGENIO-7 Assessment Tool: EUGENIO-7 Assessment 47777 ([id number]) PHQ-9 - 37747 - PHQ-9 Billing: Yes ([id number]) Assessment & Plan Assessment & Plan (1) Annual visit for general adult medical examination with abnormal findings: Code(s): Z00.01 - Encounter for general adult medical examination with abnormal findings Plan: Reviewed recent fasting labs ordered by his diesel electrician which showed markedly elevated LDL cholesterol. Ordered a fasting glucose and vitamin-D level check. Currently on atorvastatin. Advised to see his dentist as soon as possible to treat infected tooth, states that he will be going to [place] in September to get it done there by his dentist. Recommended regular eye exams, at least every 2 years. Advised to do self-testicular exam check for any mass . He refused to get any vaccines and does not want to get referred for colon cancer screening at present time, declined Cologuard as well (2) Periodontal disease: Code(s): K05.6 - Periodontal disease, unspecified Plan: Prescription sent for amoxicillin 875 mg per tablet to take 1 tablet every 12 hours for 10 days. Advised to seek dental care as soon as possible (3) JUNIOR (obstructive sleep apnea): Comment: Mild degree of sleep apnea. The AHI was 6/hr and oxygen amalia was 82%. Code(s): G47.33 - Obstructive sleep apnea (adult) (pediatric) Category: Medical Plan: Compliant with CPAP (4) Atherosclerotic cardiovascular disease: Code(s): I25.10 - Atherosclerotic heart disease of tejon coronary artery without angina pectoris Category: Medical Plan: Currently on aspirin 81 mg daily Advised getting blood pressure, lipids and glucose levels controlled (5) PAF (paroxysmal atrial fibrillation): Code(s): I48.0 - Paroxysmal atrial fibrillation Category: Medical Plan: Rare recurrences, takes metoprolol tartrate 25 mg on an as needed basis (6) Vaccination refused by patient: Code(s): Z28.21 - Immunization not carried out because of patient refusal Category: Medical Plan: Patient declines getting any vaccines (7) Heartburn symptom: Code(s): R12 - Heartburn Category: Medical Plan: Started on omeprazole 40 mg per capsule to take 1 capsule once a day an hour before eating as needed for heartburn symptoms. Avoidance of triggers for his heartburn. Advised that if symptoms persist even with omeprazole he would need to to be seen for further evaluation by artist manager. Declined combination to get an upper GI series. (8) Overweight: Code(s): E66.3 - Overweight Category: Medical Plan: Advised to lose weight, through healthy eating habits and getting regular exercise Orders: Orders Glucose Fasting 07/28/24 Z13.1 - Encounter for screening for diabetes mellitus, Z86.39 - Personal history of other endocrine, nutritional and metabolic disease Vitamin D 25-OH Total 07/28/24 Z13.1 - Encounter for screening for diabetes mellitus, Z86.39 - Personal history of other endocrine, nutritional and metabolic disease Medications: New omeprazole 40 mg PO DAILY 30 caps 0RF amoxicillin 875 mg PO Q12H 20 tabs 0RF K05.6 - Periodontal disease, unspecified
[2024-07-28 13:28] VITALS: BP 110/62; PULSE 69; O2SAT 99; BMI 30.1
== END 2024-07-28 14:21 | disposition home or self-care (01) ==
PROVIDERS: PCP Internal Medicine; Visit Provider Internal Medicine
DX: Z00.00 Encounter for general adult medical examination without abnormal findings (principal); I48.0 Paroxysmal atrial fibrillation; G47.33 Obstructive sleep apnea (adult) (pediatric); I25.10 Atherosclerotic heart disease of native coronary artery without angina pectoris; Z28.21 Immunization not carried out because of patient refusal; K05.6 Periodontal disease, unspecified; R12 Heartburn; E66.3 Overweight

== ENCOUNTER 2024-07-28 12:59 | Outpatient (REF) | payer OTHER, SELFPAY ==
[2024-07-28 16:36] LABS: Glucose Fasting 100 mg/dL (60-99)
[2024-07-28 16:59] LABS: Vitamin D 25-OH Total 97.8 ng/mL (>30)
== END 2024-07-28 13:00 | disposition home or self-care (01) ==
LOC: HO.HMGCLDS 12:59
PROVIDERS: PCP Internal Medicine; Visit Provider Internal Medicine
DX: Z00.01 Encounter for general adult medical examination with abnormal findings (principal); K05.6 Periodontal disease, unspecified; G47.33 Obstructive sleep apnea (adult) (pediatric); I25.10 Atherosclerotic heart disease of native coronary artery without angina pectoris; I48.0 Paroxysmal atrial fibrillation; R12 Heartburn; E66.3 Overweight; Z86.39 Personal history of other endocrine, nutritional and metabolic disease; Z13.1 Encounter for screening for diabetes mellitus; Z79.82 Long term (current) use of aspirin; Z99.89 Dependence on other enabling machines and devices
CPT/HCPCS: 36415; 82306; 82947; 96127; 99396

== ENCOUNTER 2024-08-06 12:35 | Outpatient (AMB) | payer OTHER, SELFPAY ==
--- NOTE | 2024-08-06 12:52 | MHC.OFFVIS ---
Vital Signs 08/06/24 12:56 Height 5 ft 7 in BP 110/70 Blood Pressure Location Rt brachial Position Sitting Intake Visit Reasons: 6 mnts f/u Sleep Intake Note: Patient presents for follow up Allergies No Known Allergies [No Known Allergies*] Allergy (Verified 08/06/24 12:56) Medication List - Last Reconciled 08/06/24 by Harika Casarez PA-C amoxicillin 875 mg PO Q12H aspirin (Adult Aspirin Regimen) 81 mg PO DAILY PRN atorvastatin 20 mg PO QPM bergamot- gooseberry xt 400-250 mg tabs PO cholecalciferol (vitamin D3) 100 mcg PO DAILY coenzyme Q10 (Co Q-10) 200 mg PO DAILY cyanocobalamin (vitamin B-12) 1,000 mcg PO DAILY fluticasone furoate 27.5 mcg/actuation (Flonase Sensimist) 2 sprays intranasal DAILY garlic 250 mg PO DAILY metoprolol tartrate 25 mg PO DAILY PRN aa-8-tyn-epa-fish oil-vit D3 [id number] ts-uf-yw-unit caps PO omeprazole 40 mg PO DAILY vitamin K2 100 mcg PO DAILY HPI Comments Details: 49 y/o male patient presents for follow up of sleep study. The home sleep study result was significant for a mild degree of sleep apnea. The AHI was 1.7 and oxygen amalia was 82%. Pt started APAP at [id number]. The CPAP compliance and therapy response (05/08/24-08/05/24) reviewed. He is on APAP [id number]. The usage days 92% and the average usage hours 6 hrs 26min. The max pressure was 11.2 and the residual AHI was 1.4/hr. He sleeps ok overall, but feels his nasal passages are clogged and can't breathe well when he uses CPAP. He had hx of nasal polyps. He requested full face mask as the nose pillows are uncomfortable, dry out his mouth. He uses Calm supplement in the morning, too. Reports headaches in the morning, sensitivity to smells, and lights, snores loudly. Denies parasomnias, sleep talking or walking, rest less legs. Continues to have excessive daytime sleepiness. [facility] Medical History Atherosclerotic cardiovascular disease PAF (paroxysmal atrial fibrillation) Vaccination refused by patient Heartburn symptom Left bundle branch block (LBBB) determined by electrocardiography History of atrial fibrillation Overweight Intermittent palpitations Family History Father No problems noted. Brother History of irregular heartbeat Sister History of irregular heartbeat Mother Mental health disorder Hypertension A-fib Social History Housing: Apartment Alcohol intake: never Patient Tobacco Use Status: Never used Tobacco e-Cigarette/Vaping Use: Never Used Current occupational status: employed Cognitive needs: No Hearing needs: No Vision needs: No Physical Exam Vital Signs: Last Vital Signs BP 110/70 08/06/24 12:56 Const General: cooperative, comfortable and no acute distress Nutritional Appearance: average body habitus Orientation/consciousness: patient oriented x3 HEENT Face and sinus: Yes normal facial exam and Yes face symmetric Eyes Pupils: Equal, round and reactive pupils present Neck Neck: Yes full ROM and Yes supple Resp Effort & Inspection: normal respiratory effort and able to speak in complete sentences Neuro General: patient oriented x3 Cranial nerves: Yes CN's II-XII intact bilaterally, Yes Facial sensation intact/muscles of mastication intact, Yes Equal, round and reactive pupils present, Yes Normal accommodation reflex present, Yes Normal facial strength present, Yes Midline tongue present and Yes Ability to bilaterally rotate head present Gait exam (Neuro): Normal gait present Motor exam (neuro): 5/5 motor strength present throughout Deep tendon reflexes (DTR's): Right triceps reflex intensity grade: 2+, Left triceps reflex intensity grade: 2+, Rt Biceps (C5, C6): 2+, Left biceps reflex intensity grade: 2+, Right brachioradialis reflex intensity grade: 2+, Left brachioradialis reflex intensity grade: 2+, Right patellar reflex intensity grade: 2+, Left patellar reflex intensity grade: 2+, Right ankle reflex intensity grade: 2+ and Left ankle reflex intensity grade: 2+ Coordination: [id number] test normal Assessment & Plan Assessment & Plan (1) Nasal sinus congestion: Code(s): R09.81 - Nasal congestion Category: Medical (2) JUNIOR (obstructive sleep apnea): Comment: Mild degree of sleep apnea. The AHI was 6/hr and oxygen amalia was 82%. Code(s): G47.33 - Obstructive sleep apnea (adult) (pediatric) Category: Medical Plan Continue CPAP use daily. Referred to sleep medicine for mask fitting. ENT referral, patient has nasal polyps. Nasal Congestion patient instructed to use Flonase 1-2 sprays in each nostril as needed. Kailyn Pot and nasal rinse as needed in the shower. Will refer patient to [facility] for a one piece mask. Orders: Referrals Ear/Nose/Throat Referral G47.33 - Obstructive sleep apnea (adult) (pediatric), R09.81 - Nasal congestion Medications: New fluticasone furoate 27.5 mcg/actuation (Flonase Sensimist) into each nostril 2 sprays intranasal DAILY 5.9 mL 0RF Coding Level of Care Code Est Pt Level 3 (95330) Diagnoses Nasal sinus congestion R09.81 JUNIOR (obstructive sleep apnea) G47.33
[2024-08-06 12:56] VITALS: BP 110/70
== END 2024-08-06 14:02 | disposition home or self-care (01) ==
PROVIDERS: PCP Internal Medicine; Visit Provider Physician Assistant Medical
DX: R09.81 Nasal congestion (principal); G47.33 Obstructive sleep apnea (adult) (pediatric)
CPT/HCPCS: 99213

== ENCOUNTER → 2024-08-06 12:35 | Outpatient (BNVA) | payer OTHER, SELFPAY | PROVIDERS: PCP Internal Medicine; Visit Provider Physician Assistant Medical | DX: R09.81 Nasal congestion (principal); G47.33 Obstructive sleep apnea (adult) (pediatric) | CPT/HCPCS: 99212 ==

== ENCOUNTER 2024-09-23 07:20 | Outpatient (REF) | payer OTHER, SELFPAY ==
[2024-09-23 10:33] LABS: Alanine Aminotransferase 35 U/L (0-40); Alkaline Phosphatase 85 U/L (39-117); Aspartate Amino Transferase 24 U/L (5-37); Bilirubin Direct 0.1 mg/dL (0.0-0.5); Bilirubin Total 0.4 mg/dL (0.0-1.0); Cholesterol 201 mg/dL (<200); HDL Cholesterol 35 mg/dL (>40); LDL Cholesterol Calculated 145 mg/dL (<100); Total Protein 6.9 g/dL (6.5-8.0); Triglycerides 109 mg/dL (<150)
== END 2024-09-23 07:21 | disposition home or self-care (01) ==
LOC: HO.HMGCLDS 07:20
PROVIDERS: PCP Internal Medicine; Visit Provider Internal Medicine
DX: I25.10 Atherosclerotic heart disease of native coronary artery without angina pectoris (principal); E78.5 Hyperlipidemia, unspecified
CPT/HCPCS: 36415; 80061; 80076

== ENCOUNTER 2025-01-23 06:27 | Outpatient (REF) | payer OTHER, SELFPAY ==
[2025-01-23 10:23] LABS: Alanine Aminotransferase 67 U/L (0-40); Albumin Level 4.3 g/dL (3.5-5.0); Alkaline Phosphatase 108 U/L (39-117); Aspartate Amino Transferase 34 U/L (5-37); Bilirubin Direct 0.2 mg/dL (0.0-0.5); Bilirubin Total 0.6 mg/dL (0.0-1.0); Cholesterol 229 mg/dL (<200); HDL Cholesterol 37 mg/dL (>40); LDL Cholesterol Calculated 162 mg/dL (<100); Total Protein 6.9 g/dL (6.5-8.0); Triglycerides 153 mg/dL (<150)
== END 2025-01-23 06:28 | disposition home or self-care (01) ==
LOC: HO.HMGCLDS 06:27
PROVIDERS: PCP Internal Medicine
DX: E78.5 Hyperlipidemia, unspecified (principal)
CPT/HCPCS: 36415; 80061; 80076

== ENCOUNTER 2025-01-28 09:08 | Outpatient (AMB) | payer OTHER, SELFPAY ==
[2025-01-28 09:12] VITALS: BP 124/76; PULSE 76; BMI 31.1
--- NOTE | 2025-01-28 09:12 | A.OFFVIS_ITS ---
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 Allergies No Known Allergies [No Known Allergies*] Allergy (Verified 08/06/24 12:56) Medication List - Last Reconciled 01/28/25 by Escobar Mei MD atorvastatin 20 mg PO QPM bergamot-Ivorian gooseberry xt 400-250 mg tabs PO cholecalciferol (vitamin D3) 100 mcg PO DAILY coenzyme Q10 (Co Q-10) 200 mg PO DAILY cyanocobalamin (vitamin B-12) 1,000 mcg PO DAILY fluticasone furoate 27.5 mcg/actuation (Flonase Sensimist) 2 sprays intranasal DAILY garlic 250 mg PO DAILY metoprolol tartrate 25 mg PO DAILY PRN [id number]-rtb-epa-fish oil-vit D3 [phone] lu-if-mb-unit caps PO omeprazole 40 mg PO DAILY vitamin K2 100 mcg PO DAILY HPI Comments Details: Lopez returns for follow-up. Originally seen in 2016, but has since returned for follow-up. He has a history of paroxysmal atrial fibrillation but no recent issues. He also had a recent EKG that showed left bundle-branch block. Then completed an echocardiogram, Holter and coronary CTA. Mild CAD. Markedly high lipids. He states that he is taking statins, but I am not entirely clear how reliably he is taking them. In the past, we was reluctant. [facility] Medical History Atherosclerotic cardiovascular disease PAF (paroxysmal atrial fibrillation) Vaccination refused by patient Heartburn symptom Left bundle branch block (LBBB) determined by electrocardiography History of atrial fibrillation Overweight Intermittent palpitations Family History Father No problems noted. Brother History of irregular heartbeat Sister History of irregular heartbeat Mother Mental health disorder Hypertension A-fib Social History Housing: Apartment Alcohol intake: never Patient Tobacco Use Status: Never used Tobacco e-Cigarette/Vaping Use: Never Used Current occupational status: employed Cognitive needs: No Hearing needs: No Vision needs: No Review of Systems Const Denies chills, Denies fatigue, Denies fever(s), Denies frequent falls, Denies weakness, Denies weight gain and Denies weight loss ENT Denies dizziness Card Denies chest pain, Denies leg edema, Denies lightheadedness, Denies palpitations, Denies dyspnea, Denies dyspnea on exertion, Denies orthopnea and Denies other (loss of consciousness) Resp Denies cough, Denies dyspnea and Denies dyspnea on exertion GI Denies hematochezia and Denies change in stool character Musc Denies abnormal gait, Denies muscle weakness, Denies numbness, Denies radiating pain into limb and Denies tingling Neuro Denies abnormal gait, Denies dizziness, Denies frequent falls, Denies numbness, Denies tingling and Denies weakness Endo Denies fatigue and Denies palpitations Physical Exam Vital Signs: Last Vital Signs Pulse 76 01/28/25 09:12 BP 124/76 01/28/25 09:12 BMI result Body Mass Index 31.1 Const General: comfortable and no acute distress Orientation/consciousness: patient oriented x3 HEENT Other: Unremarkable Head: Yes normal to inspection Neck Neck: Yes normal visual inspection Chest Chest palpation & inspection: normal inspection of the chest Resp Auscultation: clear to auscultation bilaterally Cardio Palpation: normal PMI Heart sounds: S1 normal heart sound present, S2 normal heart sound present, no gallops, no murmurs and no rubs GI Palpation (GI): Soft to palpation Back/Spine/Pelvis Other: unremarkable Skin General skin exam: no rashes or lesions noted Neuro General: patient oriented x3 Extrem General: Yes normal to inspection Psych Mental Status: mental status grossly normal Office Procedures EKG Details: EKG with underlying sinus rhythm at 76/Min; left bundle-branch block pattern. [id number], Complete Assessment & Plan Assessment & Plan (1) PAF (paroxysmal atrial fibrillation): Code(s): I48.0 - Paroxysmal atrial fibrillation Category: Medical Plan: No recent issues. He states he takes Metoprolol only as necessary. Recent Holter for almost 23 days unremarkable. (2) Left bundle branch block (LBBB) determined by electrocardiography: Code(s): I44.7 - Left bundle-branch block, unspecified Category: Medical Plan: Recent EKGs with left bundle branch pattern. Going back a few years there is slight widening of QRS but no clear-cut left bundle type morphology. Echocardiogram with preserved LVEF. Can follow on EKGs periodically. (3) Atherosclerotic cardiovascular disease: Code(s): I25.10 - Atherosclerotic heart disease of [place] coronary artery without angina pectoris Category: Medical Plan: Mild plaque in the proximal LAD, but otherwise unremarkable. He is reluctant to take statins, but he states he has been recently taking Atorvastatin 20 mg daily. However, notes state rather 40 mg daily. In the past, he was complaining that he was getting dizziness extra. We discussed about Repatha or Praluent but he states he wants to just try statins for somewhat time. We will recheck lipids in 3 months. Overall, suboptimal lipid control and have discussed this many times. Plan Discussion Notes We reviewed the patient's hypercholesterolemia and potential benefits of increasing atorvastatin to 40 mg if tolerance permits. We discussed injectable PCSK9 inhibitors as alternatives due to their efficacy but noted high costs. Insurance coverage and pharmacy consultations were recommended to address cost concerns. Metoprolol's efficacy for symptom control in atrial fibrillation was acknowledged. The patient was reminded of the importance of dietary modifications given elevated cholesterol. Patient was informed and verbally consented to the use of an ambient scribe for clinic note documentation during this visit. Orders: Orders Liver Panel 3 Months E78.5 - Hyperlipidemia, unspecified, I25.10 - Atherosclerotic heart disease of [place] coronary artery without angina pectoris Lipid Panel 3 Months E78.5 - Hyperlipidemia, unspecified Patient Instructions: - Take atorvastatin 40 mg if tolerable. - Continue metoprolol as directed for heart rhythm control. - Monitor dietary cholesterol intake, especially high-meat consumption. - Look into insurance coverage for injectable lipid treatments. - Return for blood work in 3-4 months. Coding Level of Care Code Est Pt Level 4 (51922) Complex EM visit Add On G2211 Diagnoses PAF (paroxysmal atrial fibrillation) I48.0 Left bundle branch block (LBBB) determined by electrocardiography I44.7 Atherosclerotic cardiovascular disease I25.10 CPT Codes EKG - CPT: 29256-[id number], Complete ([id number])
== END 2025-01-28 09:45 | disposition home or self-care (01) ==
LOC: HO.HCS 09:08
PROVIDERS: PCP Internal Medicine; Visit Provider Internal Medicine
DX: I48.0 Paroxysmal atrial fibrillation (principal); I44.7 Left bundle-branch block, unspecified; I25.10 Atherosclerotic heart disease of native coronary artery without angina pectoris
CPT/HCPCS: 93010; 99214; G2211

== ENCOUNTER → 2025-01-28 09:08 | Outpatient (BNVA) | payer OTHER, SELFPAY | PROVIDERS: PCP Internal Medicine; Visit Provider Internal Medicine | DX: I48.0 Paroxysmal atrial fibrillation (principal); I44.7 Left bundle-branch block, unspecified; I25.10 Atherosclerotic heart disease of native coronary artery without angina pectoris; R94.31 Abnormal electrocardiogram [ECG] [EKG] | CPT/HCPCS: 93005; 99212 ==

== ENCOUNTER 2025-02-02 13:14 | Outpatient (AMB) | payer OTHER, SELFPAY ==
[2025-02-02 13:44] VITALS: BP 124/70; PULSE 70; O2SAT 95; BMI 31.1
--- NOTE | 2025-02-02 13:44 | A.OFFVIS_ITS ---
Vital Signs 02/02/25 13:44 Height 5 ft 7 in Weight 198 lb 6 oz BMI 31.1 BP 124/70 Blood Pressure Location Rt brachial Position Sitting Pulse 70 Pulse Source Pulse Oximeter Pulse Oximetry (%) 95 Oxygen Delivery Method Room Air Intake Visit Reasons: follow up appt Intake Note: Patient presents follow up JUNIOR. Compliance in chart( 90/90 days, >=4hrs-90 days, Median pressure-8.3, Median leaks-0.1, AHI-1.0) ENT booked for 03/2025. Machine about 2 years old and is starting to make noise and pressure increasing. Allergies No Known Allergies [No Known Allergies*] Allergy (Verified 02/02/25 13:48) HPI Comments Details: 49 y/o male patient presents for follow up of sleep difficulties. The CPAP compliance and therapy response (10/28/24-01/25/25) reviewed. He is on APAP [id number]. The usage days 99% and the average usage hours 7 hrs 52min. The max pressure was 8.3 and the residual AHI was 1.0/hr. He sleeps ok overall, goes to bed at 11pm and gets up at 3am then goes back to sleep and wakes up at 6am. He feels his nasal passages are clogged and can't breathe unless if he has the cpap on his face. He has a hx of nasal polyps and septum deviation. He requests full face mask as the nose pillows are uncomfortable, and they dry out his mouth. He reports having [place] while he was in college at the age of 18, right sided face paralysis for one month, he used eye drops and an eye patch. He uses various supplements to sleep in the morning and at night. Reports headaches in the morning, sensitivity to smells, and lights, he notices his snoring has diminished since starting cpap. The headaches tend to go away after a few hours of waking up and his morning cup of coffee. He notices tenderness and severe pressure in his ethmoid sinuses and uncomfortable sensation if water gets up into his nose. Denies parasomnias, sleep talking or walking, denies rest less legs. Continues to have excessive daytime sleepiness and fatigue. His mood is low, memory is okay. [facility] Medical History Atherosclerotic cardiovascular disease PAF (paroxysmal atrial fibrillation) Vaccination refused by patient Heartburn symptom Left bundle branch block (LBBB) determined by electrocardiography History of atrial fibrillation Overweight Intermittent palpitations Family History Father No problems noted. Brother History of irregular heartbeat Sister History of irregular heartbeat Mother Mental health disorder Hypertension A-fib Social History Housing: Apartment Alcohol intake: never Patient Tobacco Use Status: Never used Tobacco e-Cigarette/Vaping Use: Never Used Current occupational status: employed Cognitive needs: No Hearing needs: No Vision needs: No Physical Exam Vital Signs: Last Vital Signs Pulse 70 02/02/25 13:44 BP 124/70 02/02/25 13:44 Pulse Ox 95 02/02/25 13:44 Oxygen Delivery Method Room Air 02/02/25 13:44 BMI result Body Mass Index 31.1 Const General: cooperative, comfortable and no acute distress Nutritional Appearance: average body habitus Orientation/consciousness: patient oriented x3 HEENT Face and sinus: Yes face symmetric Eyes Pupils: Equal, round and reactive pupils present Neck Neck: Yes full ROM Resp Effort & Inspection: normal respiratory effort and able to speak in complete sentences Neuro General: patient oriented x3 and moves all extremities Cranial nerves: Yes Equal, round and reactive pupils present, Yes Normal accommodation reflex present, Yes Normal facial strength present, Yes Ability to bilaterally rotate head present and Yes Ability to bilaterally elevate shoulders present Gait exam (Neuro): Normal gait present Motor exam (neuro): 5/5 motor strength present throughout and Normal motor muscle tone present throughout Psych Appearance: grossly normal Insight: Good insight present (Psych) Judgement: Good judgement present (Psych) Results Reviewed Results Reviewed: The CPAP compliance and therapy response (10/28/24-01/25/25) reviewed. He is on APAP [id number]. The usage days 99% and the average usage hours 7 hrs 52min. The max pressure was 8.3 and the residual AHI was 1.0/hr. Assessment & Plan Assessment & Plan (1) JUNIOR (obstructive sleep apnea): Comment: Mild degree of sleep apnea. The AHI was 6/hr and oxygen amalia was 82%. Code(s): G47.33 - Obstructive sleep apnea (adult) (pediatric) Category: Medical Plan: continue cpap (2) Nasal septal deviation: Comment: ENT referral has nasal polyps Code(s): J34.2 - Deviated nasal septum Category: Medical (3) Excessive daytime sleepiness: Comment: labs r/o deficiencies Code(s): G47.19 - Other hypersomnia Category: Medical (4) Nasal sinus congestion: Code(s): R09.81 - Nasal congestion Category: Medical Plan JUNIOR continue use of cpap Nasal septum deviation ENT referral Nasal congestion with daily morning headaches f/u with CTscan Excessive daytime sleepiness labs to r/o deficiencies Orders: Orders Complete Blood Count no Diff Today G47.19 - Other hypersomnia Comprehensive Met. Panel Today G47.19 - Other hypersomnia Methylmalonic Acid Today G47.19 - Other hypersomnia, G47.9 - Sleep disorder, unspecified, R53.83 - Other fatigue Homocysteine Today G47.19 - Other hypersomnia, G47.9 - Sleep disorder, unspecified, R53.83 - Other fatigue Vitamin B12 and Folate Today G47.19 - Other hypersomnia TSH reflex Free T4 Today G47.19 - Other hypersomnia CT head/brain wo IV con Today J34.2 - Deviated nasal septum Ferritin Today G47.19 - Other hypersomnia Hemoglobin A1c Today G47.19 - Other hypersomnia Vitamin D 25-OH Total Today G47.19 - Other hypersomnia Parathyroid Hormone Intact Today G47.19 - Other hypersomnia Referrals Ear/Nose/Throat Referral J34.2 - Deviated nasal septum Coding Level of Care Code Est Pt Level 4 (62392) Diagnoses JUNIOR (obstructive sleep apnea) G47.33 Nasal septal deviation J34.2 Excessive daytime sleepiness G47.19 Nasal sinus congestion R09.81 Time Spent (min) 30
== END 2025-02-02 14:35 | disposition home or self-care (01) ==
PROVIDERS: PCP Internal Medicine; Visit Provider Physician Assistant Medical
DX: G47.33 Obstructive sleep apnea (adult) (pediatric) (principal); J34.2 Deviated nasal septum; G47.19 Other hypersomnia; R09.81 Nasal congestion
CPT/HCPCS: 99214

== ENCOUNTER → 2025-02-02 13:14 | Outpatient (BNVA) | payer OTHER, SELFPAY | PROVIDERS: PCP Internal Medicine; Visit Provider Physician Assistant Medical | DX: G47.33 Obstructive sleep apnea (adult) (pediatric) (principal); G47.19 Other hypersomnia; J34.2 Deviated nasal septum; R09.81 Nasal congestion | CPT/HCPCS: 99212 ==

== ENCOUNTER 2025-02-03 10:47 | Outpatient (REF) | payer OTHER, SELFPAY ==
[2025-02-03 12:09] LABS: Hematocrit 45.2 % (42.0-52.0); Hemoglobin 15.3 g/dl (14.0-18.0); Mean Corpuscular HGB Conc 33.8 g/dl (31.0-36.0); Mean Corpuscular Hemoglobin 29.4 pg (27.0-33.0); Mean Corpuscular Volume 86.9 fL (80.0-98.0); Mean Platelet Volume 11.5 fL (9.4-12.4); Platelet Count 160 X10*3/uL (160-400); Red Cell Distribution Width 13.2 % (11.0-16.0); White Blood Count 3.4 X10*3/uL (4.8-10.8)
[2025-02-03 12:13] LABS: Estimated Average Glucose 143 mg/dL; Hemoglobin A1C 192.8002 umol/L; Hemoglobin A1c % 6.6 % (<6.0); Total Hemoglobin (HGBA1C) 3963.9595 umol/L
[2025-02-03 12:51] LABS: Parathyroid Hormone Intact 56.1 pg/mL (8.7-77.1)
[2025-02-03 13:06] LABS: Alanine Aminotransferase 75 U/L (0-40); Albumin Level 4.5 g/dL (3.5-5.0); Alkaline Phosphatase 105 U/L (39-117); Anion Gap 11 (12-20); Aspartate Amino Transferase 40 U/L (5-37); Blood Urea Nitrogen 15 mg/dL (9-16); Calcium 9.1 mg/dL (8.4-10.2); Carbon Dioxide 26 mmol/L (22-29); Chloride 107 mmol/L (96-108); Estimated Glomerular Filt Rate > 60; Ferritin 264 ng/mL (20-250); Glucose Random 117 mg/dL (60-115); Potassium 4.1 mmol/L (3.3-5.1); Sodium 140 mmol/L (135-145); TSH reflex Free T4 0.56 uIU/mL (0.32-4.0); Total Protein 7.4 g/dL (6.5-8.0)
[2025-02-03 13:23] LABS: Folate 15.2 ng/mL (> or = 4.0); Vitamin B12 735 pg/mL (200-900)
[2025-02-04 18:39] LABS: Homocysteine 6.5 umol/L (< or = 15.2)
[2025-02-05 20:23] LABS: Methylmalonic Acid 78 nmol/L (55-335)
== END 2025-02-03 10:48 | disposition home or self-care (01) ==
LOC: HO.HMGCLDS 10:47
PROVIDERS: PCP Internal Medicine; Visit Provider Physician Assistant Medical
DX: G47.19 Other hypersomnia (principal); R53.83 Other fatigue; G47.9 Sleep disorder, unspecified
CPT/HCPCS: 36415; 80053; 82306; 82607; 82728; 82746; 83036; 83090; 83921; 83970; 84443; 85027

== ENCOUNTER 2025-04-30 06:13 | Outpatient (REF) | payer OTHER, SELFPAY ==
[2025-04-30 10:21] LABS: Alanine Aminotransferase 37 U/L (0-40); Albumin Level 4.7 g/dL (3.5-5.0); Alkaline Phosphatase 97 U/L (39-117); Aspartate Amino Transferase 29 U/L (5-37); Cholesterol 187 mg/dL (<200); HDL Cholesterol 27 mg/dL (>40); Total Protein 7.1 g/dL (6.5-8.0); Triglycerides 63 mg/dL (<150)
== END 2025-04-30 06:14 | disposition home or self-care (01) ==
LOC: HO.HMGCLDS 06:13
PROVIDERS: PCP Internal Medicine; Visit Provider Internal Medicine
DX: I25.10 Atherosclerotic heart disease of native coronary artery without angina pectoris (principal); E78.5 Hyperlipidemia, unspecified
CPT/HCPCS: 36415; 80061; 80076

== ENCOUNTER 2025-05-04 07:22 | Outpatient (REF) | payer OTHER, SELFPAY ==
--- NOTE | ~2025-05-04 | CT_ITS ---
CLINICAL HISTORY: J34.2 - Deviated nasal septum CT sinuses without contrast Comparison: None provided Findings: The sinuses are clear. The ostiomeatal units are patent. No lakia bullosa or Dony cells. The nasal airways are patent. No nasal polyps or masses. The orbits are normal. No acute fractures. IMPRESSION: Unremarkable sinus CT. This document has been electronically signed by: Lindsey Conley MD on 05/04/2025 08:29:55
== END 2025-05-04 07:23 | disposition home or self-care (01) ==
LOC: HO.CT 07:22
PROVIDERS: PCP Internal Medicine; Visit Provider Physician Assistant Medical
DX: J43.2 Centrilobular emphysema (principal); R09.81 Nasal congestion
CPT/HCPCS: 70486

== ENCOUNTER → 2025-05-04 07:24 | Outpatient (BNV) | payer OTHER, SELFPAY | PROVIDERS: PCP Internal Medicine; Visit Provider Radiology Diagnostic Radiology | DX: J34.2 Deviated nasal septum (principal) | CPT/HCPCS: 70486 ==

== ENCOUNTER 2025-05-05 08:01 | Outpatient (AMB) | payer OTHER, SELFPAY ==
--- NOTE | 2025-05-05 08:10 | A.OFFVIS_ITS ---
Vital Signs 05/05/25 08:11 Height 5 ft 7 in Weight 186 lb 6 oz BMI 29.2 BP 120/84 Blood Pressure Location Lt brachial Position Sitting Pulse 56 Pulse Source Pulse Oximeter Pulse Oximetry (%) 97 Oxygen Delivery Method Room Air Intake Visit Reasons: 3M Follow up Intake Note: Patient presents follow up JUNIOR. Labs/Compliance in chart(90/90 days, >=4hrs-99%, Average usage- 7hr 16min, Med pressure-8.3, Med leaks- 4.3, AHI 1.7). Allergies No Known Allergies (No Known Allergies*) Allergy (Verified 05/05/25 08:14) HPI Comments Details: 49 y/o male patient presents for follow up of sleep difficulties. The CPAP compliance and therapy response for (01/25/2025 - 04/27/2025) reviewed. He is on APAP [id number]. Total usage is 99% and the average usage hours 7 hrs 16min. The med pressure was 8.3 and the residual AHI was 1.7/hr. 05/04/2025 CT scan sinuses reviewed with patient today He has been sleeping well overall and feels he can not get a good night of sleep without his cpap machine. He did have a leak with the machine and he contacted the sleep company for a replacement unit, however the pressures are too high for his face and they dry out his mouth. He feels l. nasal alae is congested and we discuss using various decongestants, along with xylimelt tabs and vicks vapor stick. He also has Flonase Sensimist available for use 2x a week. He has anxiety and takes various supplements to relax. Reports headaches in the morning, sensitivity to smells, and lights, he notices his snoring has diminished since starting cpap. Denies parasomnias, sleep talking or walking, denies restless leg symptoms of parasthesias, burning, tingling. His mood is low, memory is okay. Declines SSRI today. He washes his mask, rinses the hoses, changes filters and fills reservoir as needed. [facility] Medical History Atherosclerotic cardiovascular disease PAF (paroxysmal atrial fibrillation) Vaccination refused by patient Heartburn symptom Left bundle branch block (LBBB) determined by electrocardiography History of atrial fibrillation Overweight Intermittent palpitations Family History Father No problems noted. Brother History of irregular heartbeat Sister History of irregular heartbeat Mother Mental health disorder Hypertension A-fib Social History Housing: Apartment Alcohol intake: never Patient Tobacco Use Status: Never used Tobacco e-Cigarette/Vaping Use: Never Used Current occupational status: employed Cognitive needs: No Hearing needs: No Vision needs: No Physical Exam Vital Signs: Last Vital Signs Pulse 56 05/05/25 08:11 BP 120/84 05/05/25 08:11 Pulse Ox 97 05/05/25 08:11 Oxygen Delivery Method Room Air 05/05/25 08:11 BMI result Body Mass Index 29.2 Const General: cooperative, comfortable and no acute distress Nutritional Appearance: average body habitus Orientation/consciousness: patient oriented x3 HEENT Face and sinus: Yes face symmetric Eyes Pupils: Equal, round and reactive pupils present Neck Neck: Yes full ROM Resp Effort & Inspection: normal respiratory effort and able to speak in complete sentences Neuro General: patient oriented x3 and moves all extremities Cranial nerves: Yes Equal, round and reactive pupils present, Yes Normal accommodation reflex present, Yes Normal facial strength present, Yes Ability to bilaterally rotate head present and Yes Ability to bilaterally elevate shoulders present Gait exam (Neuro): Normal gait present Motor exam (neuro): 5/5 motor strength present throughout and Normal motor muscle tone present throughout Psych Appearance: grossly normal Insight: Good insight present (Psych) Judgement: Good judgement present (Psych) Results Reviewed Results Reviewed: CT scan sinuses 05/04/2025 Findings: The sinuses are clear. The ostiomeatal units are patent. No lakia bullosa or Dony cells. The nasal airways are patent. No nasal polyps or masses. The orbits are normal. No acute fractures. IMPRESSION: Unremarkable sinus CT. Assessment & Plan Assessment & Plan (1) JUNIOR (obstructive sleep apnea): Comment: Mild degree of sleep apnea. The AHI was 6/hr and oxygen amalia was 82%. Code(s): G47.33 - Obstructive sleep apnea (adult) (pediatric) Category: Medical Plan: continue cpap (2) Nasal septal deviation: Comment: ENT referral has nasal polyps? CT was unremarkable. Code(s): J34.2 - Deviated nasal septum Category: Medical (3) Excessive daytime sleepiness: Comment: labs r/o deficiencies Code(s): G47.19 - Other hypersomnia Category: Medical (4) Nasal sinus congestion: Code(s): R09.81 - Nasal congestion Category: Medical (5) Fatigue due to sleep pattern disturbance: Code(s): R53.83 - Other fatigue; G47.9 - Sleep disorder, unspecified Category: Medical (6) Elevated glycated hemoglobin: Code(s): R73.09 - Other abnormal glucose Category: Medical Plan JUNIOR continue use of cpap and for >4 hours a night. dry mouth, can use xylimelt tabs. CT scan of sinuses reviewed with patient today. Excessive daytime sleepiness labs to r/o deficiencies, B12 folate homocysteine and MMA, TSH all are normal. Labs reviewed with patient LDL is elevated, HgA1c is elevated, Ferritin is elevated, HDL is low. Discussed nutritional supplementation and reducing intake of iron to 3x / week, though ferritin elevation can be due to inflammatory process like T2DM. Will recheck HgA1c and Ferritin, B1 and B6 at next f/u. Will f/u in 6 months. Orders: Orders Ferritin Today G47.19 - Other hypersomnia, G47.9 - Sleep disorder, unspecified, R53.83 - Other fatigue Vitamin B1 Today G47.19 - Other hypersomnia, G47.9 - Sleep disorder, unspecified, R53.83 - Other fatigue Hemoglobin A1c Today R73.09 - Other abnormal glucose Vitamin B6 Today G47.19 - Other hypersomnia, G47.9 - Sleep disorder, unspecified, R53.83 - Other fatigue Patient Instructions: Sleep Hygiene provided: set a scheduled bedtime and wake time to help regulate the circadian rhythm and balance the release of pituitary hormones. Sleep in a dark room, temperatures below 68 degrees, and no devices n bed. Limit caffeinated products 6 hours prior to bed, and limit fluids 2-4 hours prior to bed. Gentle night yoga, diffusing essential oils, and playing soft music can be relaxing. Coding Level of Care Code Est Pt Level 4 (17201) Diagnoses JUNIOR (obstructive sleep apnea) G47.33 Nasal septal deviation J34.2 Excessive daytime sleepiness G47.19 Nasal sinus congestion R09.81 Fatigue due to sleep pattern disturbance R53.83; G47.9 Elevated glycated hemoglobin R73.09
[2025-05-05 08:11] VITALS: BP 120/84; PULSE 56; O2SAT 97; BMI 29.2
== END 2025-05-05 08:46 | disposition home or self-care (01) ==
LOC: HO.HSMS 08:02
PROVIDERS: PCP Internal Medicine; Visit Provider Physician Assistant Medical
DX: G47.33 Obstructive sleep apnea (adult) (pediatric) (principal); J34.2 Deviated nasal septum; G47.19 Other hypersomnia; R09.81 Nasal congestion; R53.83 Other fatigue; G47.9 Sleep disorder, unspecified; R73.09 Other abnormal glucose
CPT/HCPCS: 99214

== ENCOUNTER → 2025-05-05 08:01 | Outpatient (BNVA) | payer OTHER, SELFPAY | PROVIDERS: PCP Internal Medicine; Visit Provider Physician Assistant Medical | DX: G47.33 Obstructive sleep apnea (adult) (pediatric) (principal); J34.2 Deviated nasal septum; Z99.89 Dependence on other enabling machines and devices; G47.19 Other hypersomnia; R09.81 Nasal congestion; R53.83 Other fatigue; G47.9 Sleep disorder, unspecified; R73.09 Other abnormal glucose | CPT/HCPCS: 99212 ==

== ENCOUNTER 2025-07-28 13:29 | Outpatient (REF) | payer OTHER, SELFPAY ==
[2025-07-28 16:57] LABS: Ferritin 230 ng/mL (20-250)
== END 2025-07-28 13:30 | disposition home or self-care (01) ==
LOC: HO.HMGCLDS 13:29
PROVIDERS: PCP Internal Medicine; Visit Provider Physician Assistant Medical
DX: G47.19 Other hypersomnia (principal); R53.83 Other fatigue; R73.09 Other abnormal glucose
CPT/HCPCS: 36415; 82728; 83036; 84207; 84425

== ENCOUNTER 2025-08-06 09:39 | Outpatient (AMB) | payer OTHER, SELFPAY ==
[2025-08-06 09:46] VITALS: BP 118/60; PULSE 70; RESP 16; TEMP 36.6; O2SAT 98; BMI 28.5
--- NOTE | 2025-08-06 09:46 | A.OFFPC_ITS ---
Vital Signs 08/06/25 09:46 Height 5 ft 7 in Weight 182 lb BMI 28.5 BP 118/60 Blood Pressure Location Lt brachial Position Sitting Respiration 16 Pulse 70 Pulse Source Pulse Oximeter Temp 97.8 F Temp Source Oral Pulse Oximetry (%) 98 Oxygen Delivery Method Room Air Intake Visit Reasons: PE Intake Note: Pt is here today for her PE Label Stitcher Required: No Allergies No Known Allergies (No Known Allergies*) Allergy (Verified 08/06/25 09:58) Medication List - Last Reconciled 08/06/25 by Kristine Navarrete MD bergamot- gooseberry xt 400-250 mg tabs PO cholecalciferol (vitamin D3) 100 mcg PO DAILY coenzyme Q10 (Co Q-10) 200 mg PO DAILY garlic 250 mg PO DAILY metoprolol tartrate 25 mg PO DAILY PRN ua-8-kkg-epa-fish oil-vit D3 [phone] ba-ly-pe-unit caps PO omeprazole 40 mg PO DAILY PRN red yeast rice 600 mg PO DAILY vitamin B complex 1 tab PO DAILY vitamin K2 100 mcg PO DAILY Tobacco use date assessed: 08/06/25 Dental Screening Dental Screen Date: 08/06/25 HPI PE HPI Details 50-year-old male with past medical histo ry significant for dyslipidemia, obstructive sleep apnea on CPAP, followed by sleep clinic at [place], has been diagnosed to have deviated nasal septum, sees cardiology for follow-up on his paroxysmal atrial fibrillation rate controlled with metoprolol tartrate 25 mg once a day, but patient taking it only as needed, and has been found to have left bundle branch block on latest EKG, here today for his physical exam. He does not want to get any vaccination. Overdue for his colon cancer screening but declined getting colonoscopy or Cologuard testing He had a fasting lipid panel done in April 2025 which showed elevated LDL cholesterol. Patient stopped taking his atorvastatin 20 mg six-months ago, but has been taking kshg-upy-oxyifrm red yeast rice. He also had recent labs done which showed normal hemoglobin A1c at 5.6%, ferritin and vitamin B1 within normal limits but vitamin B6 is mildly elevated. [facility] Medical History Impaired fasting glucose Atherosclerotic cardiovascular disease PAF (paroxysmal atrial fibrillation) Vaccination refused by patient Heartburn symptom Left bundle branch block (LBBB) determined by electrocardiography History of atrial fibrillation Overweight Intermittent palpitations Family History Father No problems noted. Brother History of irregular heartbeat Sister History of irregular heartbeat Mother Mental health disorder Hypertension A-fib Social History Housing: Apartment Alcohol intake: never Patient Tobacco Use Status: Never used Tobacco e-Cigarette/Vaping Use: Never Used Current occupational status: employed Cognitive needs: No Hearing needs: No Vision needs: No Questionnaire PHQ-9 Over the last 2 weeks, how often have you been bothered by any of the following problems? 1. Little interest or pleasure in doing things: several days 2. Feeling down, depressed, or hopeless: not at all 3. Trouble falling or staying asleep, or sleeping too much: several days 4. Feeling tired or having little energy: several days 5. Poor appetite or overeating: not at all 6. Feeling bad about yourself - or that you are a failure or have let yourself or your family down: not at all 7. Trouble concentrating on things, such as reading the newspaper or watching television: several days 8. Moving or speaking so slowly that other people could have noticed. Or the opposite - being so fidgety or restless that you have been moving around a lot more than usual: not at all 9. Thoughts that you would be better off or of hurting yourself in some way: not at all Total score: 4 Depression Screening Interpretation: Negative Depression Screening Done: Yes 94583 - PHQ-9 Billing: Yes Source: Developed by Drs. Didier Prince, Val Wall, Richi Claire and colleagues, with an educational kevyn from [employer]. Thrive Questionnaire Date Thrive assessed: 08/06/25 I am a: Patient What is your living situation today?: I have a steady place to live Within the past 12 months, did the food you bought not last and you didn't have the money to get more?: Never true Within the past 12 months, did you worry whether your food would run out before you got money to buy more?: Never true Do you have trouble paying for medicines?: No Do you have trouble getting transportation to medical appointments?: No Do you have trouble paying your heating and electricity bill?: No Do you have trouble taking care of your child, family member or friend?: No Do you have trouble with day-to-day activities such as bathing, preparing meals, shopping, managing finances, etc.?: No Are you currently unemployed and looking for a job?: Yes Are you interested in more education?: No Please select the resources that you would like help with: None Currently or been in a relationship where the following occur: No concerns reported THRIVE Score: 0 AUDIT C Alcohol Use Questionnaire (AUDIT-C) 1. How often do you have a drink containing alcohol?: Never Total Score: 0 Score Reviewed/Action Taken: Yes EUGENIO-7 AMB Questionnaire EUGENIO-7 Date EUGENIO - 7 assessed: 08/06/25 Feeling nervous, anxious, or on edge: 0 = Not at all Not being able to stop or control worryin = Not at all Worrying too much about different things: 1 = Several days Trouble relaxin = Not at all Being so restless that it is hard to sit still: 0 = Not at all Becoming easily annoyed or irritable: 0 = Not at all Feeling afraid as if something awful might happen: 0 = Not at all Total EUGENIO-7 score (0-4 normal; 5-9 mild; 10-14 moderate; 15-21 severe): 1 Source: Developed by Drs. Didier Prince, Val Wall, Richi Claire and colleagues, with an educational kevyn from [employer]. EUGENIO-7 Assessment Billing EUGENIO-7 Assessment Tool: EUGENIO-7 Assessment 71508 Review of Systems Const Denies fatigue, Denies fever(s), Denies frequent falls, Denies weakness and Denies weight gain Eyes Details: Diagnosed with glaucoma 0S in [place] [facility] Denies dizziness Card Denies chest pain, Denies leg edema, Denies lightheadedness, Denies palpitat ions, Denies dyspnea and Denies dyspnea on exertion Resp Denies cough, Denies dyspnea and Denies dyspnea on exertion GI Denies hematochezia and Denies change in stool character Reports no additional complaints Musc Denies abnormal gait, Denies muscle weakness, Denies numbness, Denies radiating pain into limb and Denies tingling Skin/Breast Reports alopecia (Thinning hair on frontal scalp) and Denies rash Neuro Denies abnormal gait, Denies dizziness, Denies frequent falls, Denies numbness, Denies tingling and Denies weakness Psych Reports no additional complaints Endo Denies fatigue and Denies palpitations Donald/Lymph Reports no additional complaints Aller/Immun Reports no additional complaints Physical exam (Primary Care) Vital Signs: Last Vital Signs Temp 97.8 F 08/06/25 09:46 Pulse 70 08/06/25 09:46 Resp 16 08/06/25 09:46 BP 118/60 08/06/25 09:46 Pulse Ox 98 08/06/25 09:46 Oxygen Delivery Method Room Air 08/06/25 09:46 BMI result Body Mass Index 28.5 Tobacco/Smoking Status: Tobacco use Status Tobacco use date assessed 08/06/25 08/06/25 09:50 Patient Tobacco Use Status Never used Tobacco 08/06/25 09:50 e-Cigarette/Vaping Use Never Used 08/06/25 09:50 PHQ-9: PHQ-9 Score PHQ-9: Total score 4 08/06/25 09:50 Depression Screening Interpretation: Negative Thrive Assessment: Date of Thrive Assessment Date Thrive assessed 08/06/25 08/06/25 09:50 Currently or been in a relationship where the following occur: No concerns reported Const General: no acute distress and alert Nutritional Appearance: overweight Orientation/consciousness: patient oriented x3 HENMT Head: Yes normocephalic Ears: external ears normal, TM's normal bilaterally and EAC's normal General nose exam: Normal external nose present Face and sinus: Yes face symmetric Mouth: Normal oral and palatal mucosa present, tongue normal, oropharynx normal and moist mucous membranes Eyes Other: Slight bulging left eye General: appearance normal, both eyes and all related structures Eyelids: Yes eyelids normal Sclerae: sclerae normal Pupils: Equal, round and reactive pupils present EOM: EOMs intact bilaterally Neck Neck: Yes full ROM, Yes no lymphadenopathy and Yes supple Thyroid: Thyroid normal Chest Chest palpation & inspection: normal inspection of the chest Resp Effort & Inspection: normal respiratory effort and able to speak in complete sentences Auscultation: clear to auscultation bilaterally Cardio Rate: regular rate Rhythm: regular rhythm Heart sounds: S1 normal heart sound present and S2 normal heart sound present GI Palpation (GI): Soft to palpation, nontender (Slightly tender to palpation over epigastric area), no guarding and no masses Auscultation: normal bowel sounds Male General Exam: Yes other (declined exam) Back/Spine/Pelvis Back: No back tenderness Skin General skin exam: no rashes or lesions noted Hair: male pattern alopecia Neuro General: patient oriented x3, gait normal, moves all extremities, Normal light touch and pain sensation, no focal motor deficits and CN's II-XI intact bilaterally Cranial nerves: Yes Equal, round and reactive pupils present Cognition (Neuro): normal cognition Gait exam (Neuro): Normal gait present Motor exam (neuro): 5/5 motor strength present throughout Extrem General: Yes normal to inspection, Yes full ROM, Yes no joint enlargement, Yes no pedal edema and Yes normal gait Psych Appearance: grossly normal and well kempt Mental Status: mental status grossly normal Speech and movement: Normal speech and movement present Affect: normal affect Attitude: cooperative Thought process: Normal thought process present Thought content: Normal thought content present Results Reviewed Results Reviewed: Laboratory Tests 07/28/25 13:34 Estimat Average Glucose 114 Hemoglobin A1c % 5.6 Ferritin 230 Vitamin B1 11 Vitamin B6 38.5 H Name: Lopez Patel Age/Sex: 49/M : 1975 Unit#: [id number] Attend Dr: Escobar Mei MD Re04/30/25 Status: DEP REF [facility] Disch: SPEC : [id number] SAMUEL: 04/30/25 STATUS: COMP REQ : [id number] RECD: 04/30/[address]: Escobar Mei MD COMP: 04/30/251 ENTERED: 04/30/[address]: Kristine Navarrete MD ORDERED: Liver Panel, Lipid Panel Test Result Flag Reference Total Bili 0.7 0.0-1.0 mg/dL Direct Bili 0.3 0.0-0.5 mg/dL AST (GOT) 29 5-37 U/L ALT (GPT) 37 0-40 U/L Protein, Total 7.1 6.5-8.0 g/dL Alb 4.7 3.5-5.0 g/dL Triglyceride 63 <150 mg/dL Desirable Triglyceride: less than 150 mg/dL Borderline High Triglyceride 150-199 mg/dL High Triglyceride: 200-499 mg/dL Very High Triglyceride: greater than or equal to 5OO mg/dL Cholesterol 187 <200 mg/dL Desirable Cholesterol: less than 200 mg/dL Borderline High Cholesterol: 200-239 mg/dL High Cholesterol: greater than 239 mg/dL LDL Calculated 148 H <100 mg/dL Desirable LDL: less than 100 mg/dL Near Optimal/Above Optimal LDL: 110-129 mg/dL Borderline High LDL: 130-159 mg/dL High LDL: 160-189 mg/dL Very High LDL: greater than or equal to 190 mg/dL HDL 27 L >40 mg/dL Desirable HDL: greater than 40 mg/dL Note: This HDL assay may give artificially low results in patients with liver disease. Alk Phos 97 39-117 U/L Coding Level of Care Code Est Pt Prev Care 40-64y(21304) Diagnoses Annual visit for general adult medical examination with abnormal findings Z00.01 PAF (paroxysmal atrial fibrillation) I48.0 Atherosclerotic cardiovascular disease I25.10 Pure hypercholesterolemia E78.00 Hyperlipidemia type: pure hypercholesterolemia Loss of hair L65.9 Impaired fasting glucose R73.01 JUNIOR (obstructive sleep apnea) G47.33 Additional Codes EUGENIO-7 Assessment Billing - EUGENIO-7 Assessment Tool: EUGENIO-7 Assessment 37264 ([id number]) PHQ-9 - 75718 - PHQ-9 Billing: Yes ([id number]) Assessment & Plan Assessment & Plan (1) Annual visit for general adult medical examination with abnormal findings: Code(s): Z00.01 - Encounter for general adult medical examination with abnormal findings Plan: Latest hemoglobin A1c is at 5.4%, fasting lipid panel ordered last complete blood count done January 2025 showed mild leukopenia but normal hemoglobin/ hematocrit and platelet count. Recommended dental visit every 6 months and advised to schedule an appointment with an office spec, as he states that he was diagnosed to have glaucoma in left eye while he was in [place] earlier this year. Take adequate calcium in diet and vitamin-D 3 at 2000 IU per cap once a day, in addition to weight-bearing exercises to help maintain good muscle tone and weight control. Advised to stop taking vitamin-B complex as his vitamin B6 level was mildly elevated on recent labs done. Instructed to do self testicular exam check for any mass. Patient declined all offered vaccines. He is overdue for his colon cancer screening but declines to do colonoscopy procedure or Cologuard testing . (2) PAF (paroxysmal atrial fibrillation): Code(s): I48.0 - Paroxysmal atrial fibrillation Category: Medical Plan: Patient states that he has only been taking metoprolol tartrate 25 mg as needed for episodes of palpitation which has been occurring infrequently. Patient reminded that he has a follow-up appointment with Cardiology on 01/28/2026 (3) Atherosclerotic cardiovascular disease: Code(s): I25.10 - Atherosclerotic heart disease of [place] coronary artery without angina pectoris Category: Medical Plan: Patient has been advised to go on a low-cholesterol diet, but stopped taking statin six-months ago, will recheck another fasting lipid panel. Reinforced importance of following a low-cholesterol diet and getting at least 15 minutes of moderate intensity exercise daily. (4) Hyperlipidemia: Code(s): E78.5 - Hyperlipidemia, unspecified Category: Medical Qualifiers: Hyperlipidemia type: pure hypercholesterolemia Qualified Code(s): E78.00 - Pure hypercholesterolemia, unspecified Plan: Patient has stopped taking his atorvastatin six-months ago ,wants to lower lipid levels through diet and exercise, does not want to take a statin . Patient that he is taking red yeast rice which is also a statin. Fasting lipid panel ordered (5) Loss of hair: Code(s): L65.9 - Nonscarring hair loss, unspecified Plan: TSH, with free T4, testosterone level, vitamin-D. No (6) Impaired fasting glucose: Code(s): R73.01 - Impaired fasting glucose Category: Medical Plan: Your previous fasting blood sugars were elevated above 100 mg/dL. Recent labs showed hemoglobin A1c at 5.6%. Impaired glucose metabolism increases the risk for developing diabetes mellitus type 2, as well as heart attack and stroke later on. Lifestyle changes that promotes weight loss, healthy eating habits, and regular exercise are important, and can prevent the progression to diabetes (7) JUNIOR (obstructive sleep apnea): Comment: Mild degree of sleep apnea. The AHI was 6/hr and oxygen amalia was 82%. Code(s): G47.33 - Obstructive sleep apnea (adult) (pediatric) Category: Medical Plan: Currently using CPAP followed by [facility] sleep clinic Orders: Orders Vitamin D 25-OH Total Today E78.5 - Hyperlipidemia, unspecified, I25.10 - Atherosclerotic heart disease of [place] coronary artery without angina pectoris, I44.7 - Left bundle-branch block, unspecified, I48.0 - Paroxysmal atrial fibrillation, L65.9 - Nonscarring hair loss, unspecified Lipid Panel Today E78.5 - Hyperlipidemia, unspecified, I25.10 - Atherosclerotic heart disease of [place] coronary artery without angina pectoris, I44.7 - Left bundle-branch block, unspecified, I48.0 - Paroxysmal atrial fibrillation, L65.9 - Nonscarring hair loss, unspecified PSA,Total (Free>4and<10) Today E78.5 - Hyperlipidemia, unspecified, I25.10 - Atherosclerotic heart disease of [place] coronary artery without angina pectoris, I44.7 - Left bundle-branch block, unspecified, I48.0 - Paroxysmal atrial fibrillation, L65.9 - Nonscarring hair loss, unspecified TSH reflex Free T4 Today E78.5 - Hyperlipidemia, unspecified, I25.10 - Atherosclerotic heart disease of [place] coronary artery without angina pectoris, I44.7 - Left bundle-branch block, unspecified, I48.0 - Paroxysmal atrial fibrillation, L65.9 - Nonscarring hair loss, unspecified Testosterone, Free/Total Today E78.5 - Hyperlipidemia, unspecified, I25.10 - Atherosclerotic heart disease of [place] coronary artery without angina pectoris, I44.7 - Left bundle-branch block, unspecified, I48.0 - Paroxysmal atrial fibrillation, L65.9 - Nonscarring hair loss, unspecified Medications: Changed From omeprazole 40 mg PO DAILY 30 caps 0RF To omeprazole 40 mg PO DAILY PRN heartburn
== END 2025-08-06 10:29 | disposition home or self-care (01) ==
LOC: HO.HMCC 09:40
PROVIDERS: PCP Internal Medicine; Visit Provider Internal Medicine
DX: Z00.01 Encounter for general adult medical examination with abnormal findings (principal); I48.0 Paroxysmal atrial fibrillation; I25.10 Atherosclerotic heart disease of native coronary artery without angina pectoris; E78.00 Pure hypercholesterolemia, unspecified; L65.9 Nonscarring hair loss, unspecified; R73.01 Impaired fasting glucose; G47.33 Obstructive sleep apnea (adult) (pediatric)

== ENCOUNTER → 2025-08-06 09:39 | Outpatient (BNVA) | payer OTHER, SELFPAY | PROVIDERS: PCP Internal Medicine; Visit Provider Internal Medicine | DX: Z00.01 Encounter for general adult medical examination with abnormal findings (principal); I48.0 Paroxysmal atrial fibrillation; I25.10 Atherosclerotic heart disease of native coronary artery without angina pectoris; E78.00 Pure hypercholesterolemia, unspecified; L65.9 Nonscarring hair loss, unspecified; R73.01 Impaired fasting glucose; G47.33 Obstructive sleep apnea (adult) (pediatric) | CPT/HCPCS: 96127; 99396 ==